=== PATIENT | male | born 1985 | race Caucasian/White ===

== ENCOUNTER 2020-08-11 14:50 | Inpatient (IN) ==
[2020-08-11] MEDS ORDERED: IOPAMIDOL 100 ML BOTTLE IV ONE (14:51)
[2020-08-11] MEDS ORDERED: ONDANSETRON 4 MG/2 ML VIAL IV ONE ×2 (15:03→15:15)
[2020-08-11] MEDS ORDERED: 0.9 % SODIUM CHLORIDE 1,000 ML IV ONE (15:03)
[2020-08-11] MEDS ORDERED: INSULIN REGULAR, HUMAN 1 UNIT/0.01 ML UNIT IV ONE (15:23)
[2020-08-11 15:35] LABS: POC Blood Urea Nitrogen 54 mg/dL (6-20); POC CO2 24 mmol/L (22-30); POC Calcium, Ionized 1.04 mmEq/L (1.16-1.32); POC Chloride 95 mEq/L (96-108); POC Creatinine 1.7 mg/dL (0.6-1.2); POC Hematocrit 47 % (41-55); POC Potassium 3.9 mEql/L (3.3-5.1); POC Sodium 132 mEq/L (133-145)
[2020-08-11 15:36] LABS: POC Glucose, Random 520 mg/dL (70-105)
--- NOTE | 2020-08-11 15:37 | Emergency Department Note ---
Nausea/Vomiting/Diarrhea HPI <Kendra Adams, STUDENT - Last Filed: 08/11/20 20:39> General Chief complaint: Nausea/Vomiting/Diarrhea Stated complaint: nausea, vomiting Time Seen by Provider: 08/11/20 15:03 Source: patient Mode of arrival: ambulatory Limitations: no limitations History of Present Illness HPI Narrative: Narrative: [id number]-male presents with nausea/vomiting & diarrhea since Tuesday. He is actively vomiting green bile and states he has not voided since yesterday. He has not been able to keep food or fluids down since Tuesday. Patient does use marijuana to treat his gastroparesis. He reports bright red blood in his vomit at times. He is a type 1 diabetic and has been hospitalized with DKA twice most recently 2 weeks ago. He uses an insulin pump normally. He lost the PDM two days ago to control his Omni pod and has not been able to use his pump. He has been checking his blood sugars every two hours and covering himself with Humalog insulin. BG currently is 471. He just moved here from [place] to be closer to family. He reports chilling but no fever, cough, shortness of breath or recent exposure to COVID-19. Related Data Allergies Allergy/AdvReac Type Severity Reaction Status Date / Time No Known Drug Allergies Allergy Verified 08/11/20 14:54 Review of Systems <Kendra Adams, STUDENT - Last Filed: 08/11/20 20:39> ROS ROS Narrative: Narrative:Endorces history of GERD, gastroparesis, DMT1 and DKA PFSH <Kendra Adams, STUDENT - Last Filed: 08/11/20 20:39> Narrative Patient History Narrative: Narrative: Medical/Surgical/Family History All Active Problems (Updated 08/11/20 @ 17:50 by SUZANNE Sanders) Diabetic gastroparesis (Acute) DKA (diabetic ketoacidoses) (Acute) Elevated serum creatinine (Acute) Acute dehydration (Acute) Abdominal pain (Acute) Non-compliance (Acute) Diabetes (Acute) Medical History (Updated 08/11/20 @ 17:50 by SUZANNE Sanders) DKA (diabetic ketoacidoses) (Acute) Gastroparesis (Acute) Non-compliance (Acute) Social History Smoking Status: Never smoker Alcohol Intake Frequency: does not drink Substance Use: marijuana (CBD and THC pills to treat gastroperisis ) Exam <Kendra Adams, STUDENT - Last Filed: 08/11/20 20:39> Narrative Narrative: Narrative: General Limitations: no limitations General appearance: Present alert, in distress and malaise Head Head: Present atraumatic and normocephalic Eye Eye: Present normal appearance and PERRL ENT ENT: Present mucous membranes moist and other (lower lip raw and red, + pharyngitis ); Absent normal oropharynx Neck Neck: Present normal inspection Chest Chest: Present symmetric chest wall rise Respiratory Respiratory: Present normal lung sounds bilaterally; Absent respiratory distress and wheezes Cardiovascular Cardiovascular: Present regular rate and tachycardia Adbominal Abdominal: Present soft, tenderness (generalized ) and normal bowel sounds; A bsent distention and guarding Extremities Extremities: Present normal inspection Psychiatric Psychiatric: Present flat affect and poor eye contact Skin Skin: Present warm (WNL) Course <Kendra Adams, STUDENT - Last Filed: 08/11/20 20:39> Course Course Narrative: Patient continued to have vomiting with Zofran every 15-30 minutes. Phenergan 12.5 mg IV was effective for managing nausea. His vomiting is worse when he moves. No blood noted in emesis. The patient has received 1L 0.9 NS IV bolus followed by 0.9 NS at 500 ml/hr. An insulin drip was started at 6.5 u/hr for blood glucose of 520 mg/dl. His K+ was 3.9, 40 mEq [address] IV [address]. [address] of abdomen and CXR negative. WBC 23. 3 with no clear source of infection. Rapid COVID negitive. Insulin drip decreased due to blood glucose drop to 322, insulin drip decreased to 3.25 u/hr with re-check in 30 minutes[address] Report given to Dr. Peterson, he has accepted the patient at [id number] for admission to the ICU for treatment of his DKA. Vital Signs Vital signs: Vital Signs Temperature 97.8 F 08/11/20 14:51 Pulse Rate 128 H 08/11/20 14:51 Respiratory Rate 20 08/11/20 14:51 Blood Pressure 158/95 08/11/20 14:51 Pulse Oximetry (%) 98 08/11/20 14:51 Temperature 97.8 F 08/11/20 14:51 Pulse Rate 122 H 08/11/20 22:16 Respiratory Rate 28 H 08/11/20 22:16 Blood Pressure 141/97 08/11/20 22:16 Pulse Oximetry (%) 97 08/11/20 22:16 <SUZANNE Sanders - Last Filed: 08/11/20 23:06> Vital Signs Vital signs: Vital Signs Temperature 97.8 F 08/11/20 14:51 Pulse Rate 128 H 08/11/20 14:51 Respiratory Rate 20 08/11/20 14:51 Blood Pressure 158/95 08/11/20 14:51 Pulse Oximetry (%) 98 08/11/20 14:51 Temperature 97.8 F 08/11/20 14:51 Pulse Rate 122 H 08/11/20 22:16 Respiratory Rate 28 H 08/11/20 22:16 Blood Pressure 141/97 08/11/20 22:16 Pulse Oximetry (%) 97 08/11/20 22:16 MDM <Kendra Adams, STUDENT - Last Filed: 08/11/20 20:39> MDM Narrative Medical decision making narrative: Narrative: Report given to Dr. Peterson at 174, he agrees to accept this patient for care in the ICU for DKA. Lab Data Result diagrams: 08/11/20 15:26 08/11/20 15:26 Labs: Lab Results 08/11/20 08/11/20 08/11/20 Range/Units 15:03 15:26 15:26 WBC 23.3 H (4.5-11.0) K/mcL RBC 5.32 (4.50-5.90) M/mcL Hgb 15.7 (13.5-16.5) g/dL Hct 45.5 (41.0-55.0) % POC Hct 47 (41-55) % MCV 85.5 (80.0-100.0) fL MCH 29.5 (26.0-34.0) pg MCHC 34.5 (31.0-36.0) g/dL RDW 12.4 (11.5-14.5) % Plt Count 296 (140-440) K/mcL MPV 10.1 (7.4-10.4) fL Neut % (Auto) 91.2 H (38.0-78.0) % Lymph % (Auto) 3.8 L (15.0-49.0) % Emanuel % (Auto) 4.9 (1.0-12.0) % Eos % (Auto) 0 (0.0-7.0) % Baso % (Auto) 0.1 (0.0-2.0) % Lymph # (Auto) 0.89 L (1.50-4.80) K/mcL Emanuel # (Auto) 1.15 H (0.10-0.90) K/mcL Eos # (Auto) 0 (0.00-0.70) K/mcL Baso # (Auto) 0.03 (0.00-0.20) K/mcL Absolute Neutrophils 21.27 H (1.80-8.00) K/mcL ABG Methemoglobin (0.4-1.5) % VBG pH (7.32-7.42) U VBG pCO2 (41.0-51.0) mmHg VBG pO2 (25.0-40.0) mmHg VBG HCO3 (24.0-28.0) mmol/L VBG Total CO2 (25.0-29.0) mmol/L VBG O2 Saturation (40.0-70.0) % VBG Base Excess (-2-3) VBG Lactic Acid 2.5 H (0.5-2.0) mmol/L Carboxyhemoglobin (0.0-1.5) % THgb Total Hemoglobin (13.5-16.5) gm/Dl POC Sodium 132 L (133-145) mEq/L Sodium 133 (133-145) mmol/L POC Potassium 3.9 (3.3-5.1) mEql/L Potassium 4.0 (3.3-5.1) mmol/L POC Chloride 95 L (96-108) mEq/L Chloride 89 L (96-108) mmol/L Carbon Dioxide 18 L (22-30) mmol/L POC Total CO2 24 (22-30) mmol/L Anion Gap 26.0 H (8.0-16.0) POC BUN 54 H (6-20) mg/dL BUN 54 H (6-20) mg/dL Creatinine 1.7 H (0.7-1.2) mg/dL POC Creatinine 1.7 H (0.6-1.2) mg/dL GFR Calculation 51 Glucose 516 H* (70-105) mg/dL POC Glucose 520 H (70-105) mg/dL Calcium 9.3 (8.6-10.4) mg/dL POC WB Ioniz Calcium 1.04 L (1.16-1.32) mmEq/L Total Bilirubin 1.3 H (0.1-1.0) mg/dL AST 28 (<40) U/L ALT 29 (<40) U/L Alkaline Phosphatase 98 (39-117) U/L Total Protein 7.5 (5.9-8.4) gm/dL Albumin 4.5 (3.2-5.2) gm/dL Globulin 3.0 (2.2-3.7) gm/dL Albumin/Globulin Ratio 1.5 (1.0-2.3) Lipase 8 (7-60) U/L Beta-Hydroxybutyrate (<0.27) mmol/L Urine Color Urine Appearance (Clear) Urine pH (5.0-9.0) Ur Specific [place] (1.000-1.035) Urine Protein (Negative) mg/dL Urine Glucose (UA) (Negative) mg/dL Urine Ketones (Negative) mg/dL Urine Occult Blood (Negative) mg/dL Urine Nitrate (Negative) Urine Bilirubin (Negative) mg/dL Urine Urobilinogen mg/dL Ur Leukocyte Esterase (Negative) /ug Urine RBC (0-1) /hpf Urine WBC (0-4) /hpf Ur Squamous Epith Cells (0-4) /hpf Urine Bacteria (0) /hpf Hyaline Casts (0-2) /lph Urine Mucus (None) /hpf Urine Sperm (Absent) /hpf Ur Culture Indicated? SARS-CoV-2 (PCR) (Negative) 08/11/20 08/11/20 08/11/20 Range/Units 15:26 15:27 15:45 WBC (4.5-11.0) K/mcL RBC (4.50-5.90) M/mcL Hgb (13.5-16.5) g/dL Hct (41.0-55.0) % POC Hct (41-55) % MCV (80.0-100.0) fL MCH (26.0-34.0) pg MCHC (31.0-36.0) g/dL RDW (11.5-14.5) % Plt Count (140-440) K/mcL MPV (7.4-10.4) fL Neut % (Auto) (38.0-78.0) % Lymph % (Auto) (15.0-49.0) % Emanuel % (Auto) (1.0-12.0) % Eos % (Auto) (0.0-7.0) % Baso % (Auto) (0.0-2.0) % Lymph # (Auto) (1.50-4.80) K/mcL Emanuel # (Auto) (0.10-0.90) K/mcL Eos # (Auto) (0.00-0.70) K/mcL Baso # (Auto) (0.00-0.20) K/mcL Absolute Neutrophils (1.80-8.00) K/mcL ABG Methemoglobin 0.2 L (0.4-1.5) % VBG pH 7.52 H (7.32-7.42) U VBG pCO2 20.6 L (41.0-51.0) mmHg VBG pO2 187.0 H (25.0-40.0) mmHg VBG HCO3 17.8 L (24.0-28.0) mmol/L VBG Total CO2 18.4 L (25.0-29.0) mmol/L VBG O2 Saturation 96.6 H (40.0-70.0) % VBG Base Excess -2 (-2-3) VBG Lactic Acid (0.5-2.0) mmol/L Carboxyhemoglobin 2.8 H (0.0-1.5) % THgb Total Hemoglobin 15.5 (13.5-16.5) gm/Dl POC Sodium (133-145) mEq/L Sodium (133-145) mmol/L POC Potassium (3.3-5.1) mEql/L Potassium (3.3-5.1) mmol/L POC Chloride (96-108) mEq/L Chloride (96-108) mmol/L Carbon Dioxide (22-30) mmol/L POC Total CO2 (22-30) mmol/L Anion Gap (8.0-16.0) POC BUN (6-20) mg/dL BUN (6-20) mg/dL Creatinine (0.7-1.2) mg/dL POC Creatinine (0.6-1.2) mg/dL GFR Calculation Glucose (70-105) mg/dL POC Glucose (70-105) mg/dL Calcium (8.6-10.4) mg/dL POC WB Ioniz Calcium (1.16-1.32) mmEq/L Total Bilirubin (0.1-1.0) mg/dL AST (<40) U/L ALT (<40) U/L Alkaline Phosphatase (39-117) U/L Total Protein (5.9-8.4) gm/dL Albumin (3.2-5.2) gm/dL Globulin (2.2-3.7) gm/dL Albumin/Globulin Ratio (1.0-2.3) Lipase (7-60) U/L Beta-Hydroxybutyrate 3.50 H (<0.27) mmol/L Urine Color Yellow Urine Appearance Clear (Clear) Urine pH 5.0 (5.0-9.0) Ur Specific [place] 1.026 (1.000-1.035) Urine Protein Negative (Negative) mg/dL Urine Glucose (UA) >=500 A (Negative) mg/dL Urine Ketones 20 A (Negative) mg/dL Urine Occult Blood Negative (Negative) mg/dL Urine Nitrate Negative (Negative) Urine Bilirubin Negative (Negative) mg/dL Urine Urobilinogen Negative mg/dL Ur Leukocyte Esterase Negative (Negative) /ug Urine RBC < 1 (0-1) /hpf Urine WBC 1 (0-4) /hpf Ur Squamous Epith Cells < 1 (0-4) /hpf Urine Bacteria None (0) /hpf Hyaline Casts 101 H (0-2) /lph Urine Mucus Mod A (None) /hpf Urine Sperm Present A (Absent) /hpf Ur Culture Indicated? No SARS-CoV-2 (PCR) (Negative) 08/11/20 Range/Units 16:00 WBC (4.5-11.0) K/mcL RBC (4.50-5.90) M/mcL Hgb (13.5-16.5) g/dL Hct (41.0-55.0) % POC Hct (41-55) % MCV (80.0-100.0) fL MCH (26.0-34.0) pg MCHC (31.0-36.0) g/dL RDW (11.5-14.5) % Plt Count (140-440) K/mcL MPV (7.4-10.4) fL Neut % (Auto) (38.0-78.0) % Lymph % (Auto) (15.0-49.0) % Emanuel % (Auto) (1.0-12.0) % Eos % (Auto) (0.0-7.0) % Baso % (Auto) (0.0-2.0) % Lymph # (Auto) (1.50-4.80) K/mcL Emanuel # (Auto) (0.10-0.90) K/mcL Eos # (Auto) (0.00-0.70) K/mcL Baso # (Auto) (0.00-0.20) K/mcL Absolute Neutrophils (1.80-8.00) K/mcL ABG Methemoglobin (0.4-1.5) % VBG pH (7.32-7.42) U VBG pCO2 (41.0-51.0) mmHg VBG pO2 (25.0-40.0) mmHg VBG HCO3 (24.0-28.0) mmol/L VBG Total CO2 (25.0-29.0) mmol/L VBG O2 Saturation (40.0-70.0) % VBG Base Excess (-2-3) VBG Lactic Acid (0.5-2.0) mmol/L Carboxyhemoglobin (0.0-1.5) % THgb Total Hemoglobin (13.5-16.5) gm/Dl POC Sodium (133-145) mEq/L Sodium (133-145) mmol/L POC Potassium (3.3-5.1) mEql/L Potassium (3.3-5.1) mmol/L POC Chloride (96-108) mEq/L Chloride (96-108) mmol/L Carbon Dioxide (22-30) mmol/L POC Total CO2 (22-30) mmol/L Anion Gap (8.0-16.0) POC BUN (6-20) mg/dL BUN (6-20) mg/dL Creatinine (0.7-1.2) mg/dL POC Creatinine (0.6-1.2) mg/dL GFR Calculation Glucose (70-105) mg/dL POC Glucose (70-105) mg/dL Calcium (8.6-10.4) mg/dL POC WB Ioniz Calcium (1.16-1.32) mmEq/L Total Bilirubin (0.1-1.0) mg/dL AST (<40) U/L ALT (<40) U/L Alkaline Phosphatase (39-117) U/L Total Protein (5.9-8.4) gm/dL Albumin (3.2-5.2) gm/dL Globulin (2.2-3.7) gm/dL Albumin/Globulin Ratio (1.0-2.3) Lipase (7-60) U/L Beta-Hydroxybutyrate (<0.27) mmol/L Urine Color Urine Appearance (Clear) Urine pH (5.0-9.0) Ur Specific [place] (1.000-1.035) Urine Protein (Negative) mg/dL Urine Glucose (UA) (Negative) mg/dL Urine Ketones (Negative) mg/dL Urine Occult Blood (Negative) mg/dL Urine Nitrate (Negative) Urine Bilirubin (Negative) mg/dL Urine Urobilinogen mg/dL Ur Leukocyte Esterase (Negative) /ug Urine RBC (0-1) /hpf Urine WBC (0-4) /hpf Ur Squamous Epith Cells (0-4) /hpf Urine Bacteria (0) /hpf Hyaline Casts (0-2) /lph Urine Mucus (None) /hpf Urine Sperm (Absent) /hpf Ur Culture Indicated? SARS-CoV-2 (PCR) Negative (Negative) <SUZANNE Sanders - Last Filed: 08/11/20 23:06> Lab Data Labs: Lab Results 08/11/20 08/11/20 08/11/20 Range/Units 15:03 15:26 15:26 WBC 23.3 H (4.5-11.0) K/mcL RBC 5.32 (4.50-5.90) M/mcL Hgb 15.7 (13.5-16.5) g/dL Hct 45.5 (41.0-55.0) % POC Hct 47 (41-55) % MCV 85.5 (80.0-100.0) fL MCH 29.5 (26.0-34.0) pg MCHC 34.5 (31.0-36.0) g/dL RDW 12.4 (11.5-14.5) % Plt Count 296 (140-440) K/mcL MPV 10.1 (7.4-10.4) fL Neut % (Auto) 91.2 H (38.0-78.0) % Lymph % (Auto) 3.8 L (15.0-49.0) % Emanuel % (Auto) 4.9 (1.0-12.0) % Eos % (Auto) 0 (0.0-7.0) % Baso % (Auto) 0.1 (0.0-2.0) % Lymph # (Auto) 0.89 L (1.50-4.80) K/mcL Emanuel # (Auto) 1.15 H (0.10-0.90) K/mcL Eos # (Auto) 0 (0.00-0.70) K/mcL Baso # (Auto) 0.03 (0.00-0.20) K/mcL Absolute Neutrophils 21.27 H (1.80-8.00) K/mcL ABG Methemoglobin (0.4-1.5) % VBG pH (7.32-7.42) U VBG pCO2 (41.0-51.0) mmHg VBG pO2 (25.0-40.0) mmHg VBG HCO3 (24.0-28.0) mmol/L VBG Total CO2 (25.0-29.0) mmol/L VBG O2 Saturation (40.0-70.0) % VBG Base Excess (-2-3) VBG Lactic Acid 2.5 H (0.5-2.0) mmol/L Carboxyhemoglobin (0.0-1.5) % THgb Total Hemoglobin (13.5-16.5) gm/Dl POC Sodium 132 L (133-145) mEq/L Sodium 133 (133-145) mmol/L POC Potassium 3.9 (3.3-5.1) mEql/L Potassium 4.0 (3.3-5.1) mmol/L POC Chloride 95 L (96-108) mEq/L Chloride 89 L (96-108) mmol/L Carbon Dioxide 18 L (22-30) mmol/L POC Total CO2 24 (22-30) mmol/L Anion Gap 26.0 H (8.0-16.0) POC BUN 54 H (6-20) mg/dL BUN 54 H (6-20) mg/dL Creatinine 1.7 H (0.7-1.2) mg/dL POC Creatinine 1.7 H (0.6-1.2) mg/dL GFR Calculation 51 Glucose 516 H* (70-105) mg/dL POC Glucose 520 H (70-105) mg/dL Calcium 9.3 (8.6-10.4) mg/dL POC WB Ioniz Calcium 1.04 L (1.16-1.32) mmEq/L Total Bilirubin 1.3 H (0.1-1.0) mg/dL AST 28 (<40) U/L ALT 29 (<40) U/L Alkaline Phosphatase 98 (39-117) U/L Total Protein 7.5 (5.9-8.4) gm/dL Albumin 4.5 (3.2-5.2) gm/dL Globulin 3.0 (2.2-3.7) gm/dL Albumin/Globulin Ratio 1.5 (1.0-2.3) Lipase 8 (7-60) U/L Beta-Hydroxybutyrate (<0.27) mmol/L Urine Color Urine Appearance (Clear) Urine pH (5.0-9.0) Ur Specific [place] (1.000-1.035) Urine Protein (Negative) mg/dL Urine Glucose (UA) (Negative) mg/dL Urine Ketones (Negative) mg/dL Urine Occult Blood (Negative) mg/dL Urine Nitrate (Negative) Urine Bilirubin (Negative) mg/dL Urine Urobilinogen mg/dL Ur Leukocyte Esterase (Negative) /ug Urine RBC (0-1) /hpf Urine WBC (0-4) /hpf Ur Squamous Epith Cells (0-4) /hpf Urine Bacteria (0) /hpf Hyaline Casts (0-2) /lph Urine Mucus (None) /hpf Urine Sperm (Absent) /hpf Ur Culture Indicated? SARS-CoV-2 (PCR) (Negative) 08/11/20 08/11/20 08/11/20 Range/Units 15:26 15:27 15:45 WBC (4.5-11.0) K/mcL RBC (4.50-5.90) M/mcL Hgb (13.5-16.5) g/dL Hct (41.0-55.0) % POC Hct (41-55) % MCV (80.0-100.0) fL MCH (26.0-34.0) pg MCHC (31.0-36.0) g/dL RDW (11.5-14.5) % Plt Count (140-440) K/mcL MPV (7.4-10.4) fL Neut % (Auto) (38.0-78.0) % Lymph % (Auto) (15.0-49.0) % Emanuel % (Auto) (1.0-12.0) % Eos % (Auto) (0.0-7.0) % Baso % (Auto) (0.0-2.0) % Lymph # (Auto) (1.50-4.80) K/mcL Emanuel # (Auto) (0.10-0.90) K/mcL Eos # (Auto) (0.00-0.70) K/mcL Baso # (Auto) (0.00-0.20) K/mcL Absolute Neutrophils (1.80-8.00) K/mcL ABG Methemoglobin 0.2 L (0.4-1.5) % VBG pH 7.52 H (7.32-7.42) U VBG pCO2 20.6 L (41.0-51.0) mmHg VBG pO2 187.0 H (25.0-40.0) mmHg VBG HCO3 17.8 L (24.0-28.0) mmol/L VBG Total CO2 18.4 L (25.0-29.0) mmol/L VBG O2 Saturation 96.6 H (40.0-70.0) % VBG Base Excess -2 (-2-3) VBG Lactic Acid (0.5-2.0) mmol/L Carboxyhemoglobin 2.8 H (0.0-1.5) % THgb Total Hemoglobin 15.5 (13.5-16.5) gm/Dl POC Sodium (133-145) mEq/L Sodium (133-145) mmol/L POC Potassium (3.3-5.1) mEql/L Potassium (3.3-5.1) mmol/L POC Chloride (96-108) mEq/L Chloride (96-108) mmol/L Carbon Dioxide (22-30) mmol/L POC Total CO2 (22-30) mmol/L Anion Gap (8.0-16.0) POC BUN (6-20) mg/dL BUN (6-20) mg/dL Creatinine (0.7-1.2) mg/dL POC Creatinine (0.6-1.2) mg/dL GFR Calculation Glucose (70-105) mg/dL POC Glucose (70-105) mg/dL Calcium (8.6-10.4) mg/dL POC WB Ioniz Calcium (1.16-1.32) mmEq/L Total Bilirubin (0.1-1.0) mg/dL AST (<40) U/L ALT (<40) U/L Alkaline Phosphatase (39-117) U/L Total Protein (5.9-8.4) gm/dL Albumin (3.2-5.2) gm/dL Globulin (2.2-3.7) gm/dL Albumin/Globulin Ratio (1.0-2.3) Lipase (7-60) U/L Beta-Hydroxybutyrate 3.50 H (<0.27) mmol/L Urine Color Yellow Urine Appearance Clear (Clear) Urine pH 5.0 (5.0-9.0) Ur Specific [place] 1.026 (1.000-1.035) Urine Protein Negative (Negative) mg/dL Urine Glucose (UA) >=500 A (Negative) mg/dL Urine Ketones 20 A (Negative) mg/dL Urine Occult Blood Negative (Negative) mg/dL Urine Nitrate Negative (Negative) Urine Bilirubin Negative (Negative) mg/dL Urine Urobilinogen Negative mg/dL Ur Leukocyte Esterase Negative (Negative) /ug Urine RBC < 1 (0-1) /hpf Urine WBC 1 (0-4) /hpf Ur Squamous Epith Cells < 1 (0-4) /hpf Urine Bacteria None (0) /hpf Hyaline Casts 101 H (0-2) /lph Urine Mucus Mod A (None) /hpf Urine Sperm Present A (Absent) /hpf Ur Culture Indicated? No SARS-CoV-2 (PCR) (Negative) 08/11/20 Range/Units 16:00 WBC (4.5-11.0) K/mcL RBC (4.50-5.90) M/mcL Hgb (13.5-16.5) g/dL Hct (41.0-55.0) % POC Hct (41-55) % MCV (80.0-100.0) fL MCH (26.0-34.0) pg MCHC (31.0-36.0) g/dL RDW (11.5-14.5) % Plt Count (140-440) K/mcL MPV (7.4-10.4) fL Neut % (Auto) (38.0-78.0) % Lymph % (Auto) (15.0-49.0) % Emanuel % (Auto) (1.0-12.0) % Eos % (Auto) (0.0-7.0) % Baso % (Auto) (0.0-2.0) % Lymph # (Auto) (1.50-4.80) K/mcL Emanuel # (Auto) (0.10-0.90) K/mcL Eos # (Auto) (0.00-0.70) K/mcL Baso # (Auto) (0.00-0.20) K/mcL Absolute Neutrophils (1.80-8.00) K/mcL ABG Methemoglobin (0.4-1.5) % VBG pH (7.32-7.42) U VBG pCO2 (41.0-51.0) mmHg VBG pO2 (25.0-40.0) mmHg VBG HCO3 (24.0-28.0) mmol/L VBG Total CO2 (25.0-29.0) mmol/L VBG O2 Saturation (40.0-70.0) % VBG Base Excess (-2-3) VBG Lactic Acid (0.5-2.0) mmol/L Carboxyhemoglobin (0.0-1.5) % THgb Total Hemoglobin (13.5-16.5) gm/Dl POC Sodium (133-145) mEq/L Sodium (133-145) mmol/L POC Potassium (3.3-5.1) mEql/L Potassium (3.3-5.1) mmol/L POC Chloride (96-108) mEq/L Chloride (96-108) mmol/L Carbon Dioxide (22-30) mmol/L POC Total CO2 (22-30) mmol/L Anion Gap (8.0-16.0) POC BUN (6-20) mg/dL BUN (6-20) mg/dL Creatinine (0.7-1.2) mg/dL POC Creatinine (0.6-1.2) mg/dL GFR Calculation Glucose (70-105) mg/dL POC Glucose (70-105) mg/dL Calcium (8.6-10.4) mg/dL POC WB Ioniz Calcium (1.16-1.32) mmEq/L Total Bilirubin (0.1-1.0) mg/dL AST (<40) U/L ALT (<40) U/L Alkaline Phosphatase (39-117) U/L Total Protein (5.9-8.4) gm/dL Albumin (3.2-5.2) gm/dL Globulin (2.2-3.7) gm/dL Albumin/Globulin Ratio (1.0-2.3) Lipase (7-60) U/L Beta-Hydroxybutyrate (<0.27) mmol/L Urine Color Urine Appearance (Clear) Urine pH (5.0-9.0) Ur Specific [place] (1.000-1.035) Urine Protein (Negative) mg/dL Urine Glucose (UA) (Negative) mg/dL Urine Ketones (Negative) mg/dL Urine Occult Blood (Negative) mg/dL Urine Nitrate (Negative) Urine Bilirubin (Negative) mg/dL Urine Urobilinogen mg/dL Ur Leukocyte Esterase (Negative) /ug Urine RBC (0-1) /hpf Urine WBC (0-4) /hpf Ur Squamous Epith Cells (0-4) /hpf Urine Bacteria (0) /hpf Hyaline Casts (0-2) /lph Urine Mucus (None) /hpf Urine Sperm (Absent) /hpf Ur Culture Indicated? SARS-CoV-2 (PCR) Negative (Negative) Discharge Plan Patient/Caregiver Discharge Instructions Pt seen by [facility]/PA only: Yes Clinical Impression: Non-compliance, Diabetic gastroparesis, Elevated serum creatinine, Acute dehydration, Abdominal pain Diabetes Qualifiers: Diabetes mellitus type: type 1 DKA (diabetic ketoacidoses) Qualifiers: Diabetes mellitus type: type 1 Diabetes mellitus complication detail: without coma Qualified Code(s): E10.10 - Type 1 diabetes mellitus with ketoacidosis without coma Patient Disposition: Xfer As Inpt ([facility]) Condition: Fair Discharge Date/Time: 08/11/20 22:28
[2020-08-11 15:55] LABS: ABG Methemoglobin 0.2 % (0.4-1.5); Basophils # (Auto) 0.03 K/mcL (0.00-0.20); Basophils % (Auto) 0.1 % (0.0-2.0); Eosinophils # (Auto) 0 K/mcL (0.00-0.70); Eosinophils % (Auto) 0 % (0.0-7.0); Hematocrit 45.5 % (41.0-55.0); Hemoglobin 15.7 g/dL (13.5-16.5); Lymphocytes # (Auto) 0.89 K/mcL (1.50-4.80); Lymphocytes % (Auto) 3.8 % (15.0-49.0); Mean Cell Volume 85.5 fL (80.0-100.0); Mean Corpuscular HGB Conc 34.5 g/dL (31.0-36.0); Mean Platelet Volume 10.1 fL (7.4-10.4); Monocytes # (Auto) 1.15 K/mcL (0.10-0.90); Monocytes % (Auto) 4.9 % (1.0-12.0); Neutrophils % (Auto) 91.2 % (38.0-78.0); Platelet Count 296 K/mcL (140-440); RBC 5.32 M/mcL (4.50-5.90); Red Cell Distribution Width 12.4 % (11.5-14.5); Total Hemoglobin 15.5 gm/Dl (13.5-16.5); VBG Base Excess -2 (-2-3); VBG HCO3 17.8 mmol/L (24.0-28.0); VBG Oxygen Saturation 96.6 % (40.0-70.0); VBG PCO2 20.6 mmHg (41.0-51.0); VBG PH 7.52 U (7.32-7.42); VBG Total CO2 18.4 mmol/L (25.0-29.0); WBC 23.3 K/mcL (4.5-11.0)
[2020-08-11] MEDS ORDERED: POTASSIUM CHLORIDE 40 MEQ in DEXTROSE 5% IN WATER 500 ML IV ONE (16:21)
[2020-08-11] MEDS ORDERED: INSULIN REGULAR, HUMAN 50 UNIT in 0.9 % SODIUM CHLORIDE 99.5 ML IV SCH (16:30)
[2020-08-11] MEDS ORDERED: 0.9 % SODIUM CHLORIDE 1,000 ML IV SCH (16:30)
[2020-08-11] MEDS ORDERED: PROMETHAZINE 25 MG/ML VIAL IV ONE (16:34)
[2020-08-11 16:39] LABS: ALT/SGPT 29 U/L (<40); AST/SGOT 28 U/L (<40); Albumin 4.5 gm/dL (3.2-5.2); Albumin/Globulin Ratio 1.5 (1.0-2.3); Alkaline Phosphatase 98 U/L (39-117); Bilirubin,Total 1.3 mg/dL (0.1-1.0); Blood Urea Nitrogen 54 mg/dL (6-20); Calcium 9.3 mg/dL (8.6-10.4); Carbon Dioxide 18 mmol/L (22-30); Chloride 89 mmol/L (96-108); Glomerular Filtration Rate 51; Glucose 516 mg/dL (70-105)
[2020-08-11 16:58] LABS: Appearance,Urine CLEAR (Clear); Bilirubin,Urine Negative (Negative); Color,Urine YELLOW; Culture Indicated,Urine No; Glucose,Urine (UA) >=500 mg/dL (Negative); Ketones,Urine 20 mg/dL (Negative); Leukocyte Esterase,Urine Negative /ug (Negative); Mucus,Urine MOD /hpf; Nitrate,Urine Negative (Negative); Protein,Urine Negative (Negative); Specific Gravity,Urine 1.026 (1.000-1.035); Sperm,Urine PRESENT /hpf (Absent); Urine Blood Negative (Negative); Urine Hyaline Cast 101 /lph (0-2); Urine RBC < 1 /hpf (0-1); Urine Squamous Epithelial Cell < 1 /hpf (0-4); Urine WBC 1 /hpf (0-4); Urobilinogen,Urine Negative
--- NOTE | 2020-08-11 17:04 | XRay Report ---
INDICATION: weakness, elevated wbc TECHNIQUE: AP portable semiupright chest x-ray COMPARISON: None FINDINGS: Lungs:Lungs are negative. No focal pulmonary parenchymal infiltrate or mass Heart, vascular:No significant cardiomegaly. Pulmonary vascularity is normal. No pulmonary edema or pulmonary congestion Mediastinum, sussy:No mediastinal widening. No hilar mass Pleura:No pleural fluid. No pleural-based mass or calcification Skeletal:Negative. IMPRESSION: Negative AP chest x-ray Interpreted and Authenticated by: Terrell Thomas 08/11/20
--- NOTE | 2020-08-11 17:12 | Cat Scan Report ---
INDICATION: difuse abd pain, wbc 23K COMPARISON: None. TECHNIQUE: Axial images were obtained through the abdomen and pelvis. Sagittally and coronally reformatted images. 60 mL Isovue 370 injected intravenously. FINDINGS: Lung bases:Negative. No pulmonary parenchymal nodule. No pleural fluid or pericardial fluid Liver:Negative. No focal intrahepatic mass. No focal abnormality. Liver contour is smooth. No evidence for cirrhosis Gallbladder, bilary:No calcified gallstones. No gallbladder wall thickening. No dilated intra or extrahepatic bile ducts. Spleen:No splenomegaly. Normal enhancement of splenic and portal veins. Pancreas:No pancreatic mass. No peripancreatic abnormality Adrenal glands:Negative Kidneys, ureters, bladder:No solid or cystic renal mass. No hydronephrosis. No obstructing calculi. There is no hydroureter. No ureteral stone Bladder is moderately distended. No bladder calculi are detectable mass Gastrointestinal:No detectable colonic mass. There is no diverticulitis. Small bowel is negative. No mechanical small bowel obstruction. Stomach and duodenum are unremarkable. There is a small hiatal hernia Appendix: The appendix is negative Vascular:Negative abdominal aorta. Superior mesenteric artery and celiac trunk are normal. Normal opacification of the inferior mesenteric artery Lymphatic:No retroperitoneal or mesenteric adenopathy Mesentery, peritoneum: No free intraperitoneal fluid. No mesenteric or retroperitoneal mass. Reproductive:Prostate is not significantly enlarged Musculoskeletal:No lumbar compression fractures. Sacrum and pelvis are negative. No hip fracture.No abdominal wall or inguinal hernia IMPRESSION: 1. Small hiatal hernia 2. Moderate bladder distention 3. Negative appendix The exam was performed using radiation dose optimization techniques including, but not limited to, automated exposure control, adjustment of the mA and/or kV according to patient size and use of iterative reconstruction technique. Interpreted and Authenticated by: Terrell Thomas 08/11/20
--- NOTE | 2020-08-11 17:20 | Emergency Department Note ---
HPI General Chief complaint: Nausea/Vomiting/Diarrhea Stated complaint: nausea, vomiting Time Seen by Provider: 08/11/20 15:03 Source: patient Mode of arrival: ambulatory Limitations: no limitations History of Present Illness HPI Narrative: Narrative:Narrative: [id number] presents with nausea/vomiting & diarrhea since Tuesday. He is actively vomiting green bile and states he has not voided since yesterday. He has not been able to keep food or fluids down since Tuesday. Patient does use marijuana to treat his gastroparesis. He reports bright red blood in his vomit at times. He is a type 1 diabetic and has been hospitalized with DKA twice most recently 2 weeks ago. He uses an insulin pump normally. He lost the PDM two days ago to control his Omni pod and has not been able to use his pump. He has been checking his blood sugars every two hours and covering himself with Humalog insulin. BG currently is 471. He just moved here from [place] to be closer to family. He reports chilling but no fever, cough, shortness of breath or recent exposure to COVID-19. Agree with this HPI done by student DAIRY QUALITY ASSURANCE OFFICER Kendra Adams Related Data Allergies Allergy/AdvReac Type Severity Reaction Status Date / Time No Known Drug Allergies Allergy Verified 08/11/20 14:54 Review of Systems ROS ROS Narrative: Narrative: All systems ED: reviewed and negative except as stated. [facility] Narrative Patient History Narrative: Narrative: Medical/Surgical/Family History All Active Problems (Updated 08/11/20 @ 17:50 by SUZANNE Sanders) Diabetic gastroparesis (Acute) DKA (diabetic ketoacidoses) (Acute) Elevated serum creatinine (Acute) Acute dehydration (Acute) Abdominal pain (Acute) Non-compliance (Acute) Diabetes (Acute) Medical History (Updated 08/11/20 @ 17:50 by SUZANNE Sanders) DKA (diabetic ketoacidoses) (Acute) Gastroparesis (Acute) Non-compliance (Acute) Social History Smoking Status: Never smoker Alcohol Intake Frequency: does not drink Substance Use: marijuana Exam Narrative Narrative: Narrative: General Limitations: no limitations General appearance: Present alert and other (flushed) Head Head: Present atraumatic and normocephalic Eye Eye: Present normal appearance; Absent conjunctival injection ENT ENT: Present mucous membranes moist, TM's normal bilaterally and normal external ear exam; Absent normal oropharynx (Posterior pharynx with moderate erythema.), nasal congestion and nasal tones Neck Neck: Present normal inspection and trachea midline; Absent lymphadenopathy Chest Chest: Present symmetric chest wall rise Respiratory Respiratory: Present normal lung sounds bilaterally; Absent respiratory distress, rales/crackles, wheezes, stridor and accessory muscle use Cardiovascular Cardiovascular: Present tachycardia and normal heart sounds Adbominal Abdominal: Present soft, tenderness (difuse) and normal bowel sounds; Absent distention, guarding, rebound and rigidity Extremities Extremities: Present normal capillary refill; Absent pedal edema Neurological Neurological: Present alert and oriented X3 Psychiatric Psychiatric: Present normal affect and normal mood Skin Skin: Present warm (WNL), dry, intact and normal color Course Vital Signs Vital signs: Vital Signs Temperature 97.8 F 08/11/20 14:51 Pulse Rate 128 H 08/11/20 14:51 Respiratory Rate 20 08/11/20 14:51 Blood Pressure 158/95 08/11/20 14:51 Pulse Oximetry (%) 98 08/11/20 14:51 Temperature 97.8 F 08/11/20 14:51 Pulse Rate 123 H 08/11/20 16:31 Respiratory Rate 20 08/11/20 14:51 Blood Pressure 159/97 08/11/20 16:31 Pulse Oximetry (%) 99 08/11/20 16:31 MDM MDM Narrative Medical decision making narrative: Narrative: [id number] Dr. Peterson agrees to accept pt, pt to ICU Lab Data Lab results reviewed: Yes I reviewed the patient's lab results. Result diagrams: 08/11/20 15:26 08/11/20 15:26 Labs: Lab Results 08/11/20 08/11/20 08/11/20 Range/Units 15:03 15:26 15:26 WBC 23.3 H (4.5-11.0) K/mcL RBC 5.32 (4.50-5.90) M/mcL Hgb 15.7 (13.5-16.5) g/dL Hct 45.5 (41.0-55.0) % POC Hct 47 (41-55) % MCV 85.5 (80.0-100.0) fL MCH 29.5 (26.0-34.0) pg MCHC 34.5 (31.0-36.0) g/dL RDW 12.4 (11.5-14.5) % Plt Count 296 (140-440) K/mcL MPV 10.1 (7.4-10.4) fL Neut % (Auto) 91.2 H (38.0-78.0) % Lymph % (Auto) 3.8 L (15.0-49.0) % [place] % (Auto) 4.9 (1.0-12.0) % Eos % (Auto) 0 (0.0-7.0) % Baso % (Auto) 0.1 (0.0-2.0) % Lymph # (Auto) 0.89 L (1.50-4.80) K/mcL [place] # (Auto) 1.15 H (0.10-0.90) K/mcL Eos # (Auto) 0 (0.00-0.70) K/mcL Baso # (Auto) 0.03 (0.00-0.20) K/mcL Absolute Neutrophils 21.27 H (1.80-8.00) K/mcL ABG Methemoglobin (0.4-1.5) % VBG pH (7.32-7.42) U VBG pCO2 (41.0-51.0) mmHg VBG pO2 (25.0-40.0) mmHg VBG HCO3 (24.0-28.0) mmol/L VBG Total CO2 (25.0-29.0) mmol/L VBG O2 Saturation (40.0-70.0) % VBG Base Excess (-2-3) VBG Lactic Acid 2.5 H (0.5-2.0) mmol/L Carboxyhemoglobin (0.0-1.5) % THgb Total Hemoglobin (13.5-16.5) gm/Dl POC Sodium 132 L (133-145) mEq/L Sodium 133 (133-145) mmol/L POC Potassium 3.9 (3.3-5.1) mEql/L Potassium 4.0 (3.3-5.1) mmol/L POC Chloride 95 L (96-108) mEq/L Chloride 89 L (96-108) mmol/L Carbon Dioxide 18 L (22-30) mmol/L POC Total CO2 24 (22-30) mmol/L Anion Gap 26.0 H (8.0-16.0) POC BUN 54 H (6-20) mg/dL BUN 54 H (6-20) mg/dL Creatinine 1.7 H (0.7-1.2) mg/dL POC Creatinine 1.7 H (0.6-1.2) mg/dL GFR Calculation 51 Glucose 516 H* (70-105) mg/dL POC Glucose 520 H (70-105) mg/dL Calcium 9.3 (8.6-10.4) mg/dL POC WB Ioniz Calcium 1.04 L (1.16-1.32) mmEq/L Total Bilirubin 1.3 H (0.1-1.0) mg/dL AST 28 (<40) U/L ALT 29 (<40) U/L Alkaline Phosphatase 98 (39-117) U/L Total Protein 7.5 (5.9-8.4) gm/dL Albumin 4.5 (3.2-5.2) gm/dL Globulin 3.0 (2.2-3.7) gm/dL Albumin/Globulin Ratio 1.5 (1.0-2.3) Lipase 8 (7-60) U/L Beta-Hydroxybutyrate (<0.27) mmol/L Urine Color Urine Appearance (Clear) Urine pH (5.0-9.0) Ur Specific [place] (1.000-1.035) Urine Protein (Negative) mg/dL Urine Glucose (UA) (Negative) mg/dL Urine Ketones (Negative) mg/dL Urine Occult Blood (Negative) mg/dL Urine Nitrate (Negative) Urine Bilirubin (Negative) mg/dL Urine Urobilinogen mg/dL Ur Leukocyte Esterase (Negative) /ug Urine RBC (0-1) /hpf Urine WBC (0-4) /hpf Ur Squamous Epith Cells (0-4) /hpf Urine Bacteria (0) /hpf Hyaline Casts (0-2) /lph Urine Mucus (None) /hpf Urine Sperm (Absent) /hpf Ur Culture Indicated? SARS-CoV-2 (PCR) (Negative) 08/11/20 08/11/20 08/11/20 Range/Units 15:26 15:27 15:45 WBC (4.5-11.0) K/mcL RBC (4.50-5.90) M/mcL Hgb (13.5-16.5) g/dL Hct (41.0-55.0) % POC Hct (41-55) % MCV (80.0-100.0) fL MCH (26.0-34.0) pg MCHC (31.0-36.0) g/dL RDW (11.5-14.5) % Plt Count (140-440) K/mcL MPV (7.4-10.4) fL Neut % (Auto) (38.0-78.0) % Lymph % (Auto) (15.0-49.0) % [place] % (Auto) (1.0-12.0) % Eos % (Auto) (0.0-7.0) % Baso % (Auto) (0.0-2.0) % Lymph # (Auto) (1.50-4.80) K/mcL [place] # (Auto) (0.10-0.90) K/mcL Eos # (Auto) (0.00-0.70) K/mcL Baso # (Auto) (0.00-0.20) K/mcL Absolute Neutrophils (1.80-8.00) K/mcL ABG Methemoglobin 0.2 L (0.4-1.5) % VBG pH 7.52 H (7.32-7.42) U VBG pCO2 20.6 L (41.0-51.0) mmHg VBG pO2 187.0 H (25.0-40.0) mmHg VBG HCO3 17.8 L (24.0-28.0) mmol/L VBG Total CO2 18.4 L (25.0-29.0) mmol/L VBG O2 Saturation 96.6 H (40.0-70.0) % VBG Base Excess -2 (-2-3) VBG Lactic Acid (0.5-2.0) mmol/L Carboxyhemoglobin 2.8 H (0.0-1.5) % THgb Total Hemoglobin 15.5 (13.5-16.5) gm/Dl POC Sodium (133-145) mEq/L Sodium (133-145) mmol/L POC Potassium (3.3-5.1) mEql/L Potassium (3.3-5.1) mmol/L POC Chloride (96-108) mEq/L Chloride (96-108) mmol/L Carbon Dioxide (22-30) mmol/L POC Total CO2 (22-30) mmol/L Anion Gap (8.0-16.0) POC BUN (6-20) mg/dL BUN (6-20) mg/dL Creatinine (0.7-1.2) mg/dL POC Creatinine (0.6-1.2) mg/dL GFR Calculation Glucose (70-105) mg/dL POC Glucose (70-105) mg/dL Calcium (8.6-10.4) mg/dL POC WB Ioniz Calcium (1.16-1.32) mmEq/L Total Bilirubin (0.1-1.0) mg/dL AST (<40) U/L ALT (<40) U/L Alkaline Phosphatase (39-117) U/L Total Protein (5.9-8.4) gm/dL Albumin (3.2-5.2) gm/dL Globulin (2.2-3.7) gm/dL Albumin/Globulin Ratio (1.0-2.3) Lipase (7-60) U/L Beta-Hydroxybutyrate 3.50 H (<0.27) mmol/L Urine Color Yellow Urine Appearance Clear (Clear) Urine pH 5.0 (5.0-9.0) Ur Specific [place] 1.026 (1.000-1.035) Urine Protein Negative (Negative) mg/dL Urine Glucose (UA) >=500 A (Negative) mg/dL Urine Ketones 20 A (Negative) mg/dL Urine Occult Blood Negative (Negative) mg/dL Urine Nitrate Negative (Negative) Urine Bilirubin Negative (Negative) mg/dL Urine Urobilinogen Negative mg/dL Ur Leukocyte Esterase Negative (Negative) /ug Urine RBC < 1 (0-1) /hpf Urine WBC 1 (0-4) /hpf Ur Squamous Epith Cells < 1 (0-4) /hpf Urine Bacteria None (0) /hpf Hyaline Casts 101 H (0-2) /lph Urine Mucus Mod A (None) /hpf Urine Sperm Present A (Absent) /hpf Ur Culture Indicated? No SARS-CoV-2 (PCR) (Negative) 08/11/20 Range/Units 16:00 WBC (4.5-11.0) K/mcL RBC (4.50-5.90) M/mcL Hgb (13.5-16.5) g/dL Hct (41.0-55.0) % POC Hct (41-55) % MCV (80.0-100.0) fL MCH (26.0-34.0) pg MCHC (31.0-36.0) g/dL RDW (11.5-14.5) % Plt Count (140-440) K/mcL MPV (7.4-10.4) fL Neut % (Auto) (38.0-78.0) % Lymph % (Auto) (15.0-49.0) % [place] % (Auto) (1.0-12.0) % Eos % (Auto) (0.0-7.0) % Baso % (Auto) (0.0-2.0) % Lymph # (Auto) (1.50-4.80) K/mcL [place] # (Auto) (0.10-0.90) K/mcL Eos # (Auto) (0.00-0.70) K/mcL Baso # (Auto) (0.00-0.20) K/mcL Absolute Neutrophils (1.80-8.00) K/mcL ABG Methemoglobin (0.4-1.5) % VBG pH (7.32-7.42) U VBG pCO2 (41.0-51.0) mmHg VBG pO2 (25.0-40.0) mmHg VBG HCO3 (24.0-28.0) mmol/L VBG Total CO2 (25.0-29.0) mmol/L VBG O2 Saturation (40.0-70.0) % VBG Base Excess (-2-3) VBG Lactic Acid (0.5-2.0) mmol/L Carboxyhemoglobin (0.0-1.5) % THgb Total Hemoglobin (13.5-16.5) gm/Dl POC Sodium (133-145) mEq/L Sodium (133-145) mmol/L POC Potassium (3.3-5.1) mEql/L Potassium (3.3-5.1) mmol/L POC Chloride (96-108) mEq/L Chloride (96-108) mmol/L Carbon Dioxide (22-30) mmol/L POC Total CO2 (22-30) mmol/L Anion Gap (8.0-16.0) POC BUN (6-20) mg/dL BUN (6-20) mg/dL Creatinine (0.7-1.2) mg/dL POC Creatinine (0.6-1.2) mg/dL GFR Calculation Glucose (70-105) mg/dL POC Glucose (70-105) mg/dL Calcium (8.6-10.4) mg/dL POC WB Ioniz Calcium (1.16-1.32) mmEq/L Total Bilirubin (0.1-1.0) mg/dL AST (<40) U/L ALT (<40) U/L Alkaline Phosphatase (39-117) U/L Total Protein (5.9-8.4) gm/dL Albumin (3.2-5.2) gm/dL Globulin (2.2-3.7) gm/dL Albumin/Globulin Ratio (1.0-2.3) Lipase (7-60) U/L Beta-Hydroxybutyrate (<0.27) mmol/L Urine Color Urine Appearance (Clear) Urine pH (5.0-9.0) Ur Specific [place] (1.000-1.035) Urine Protein (Negative) mg/dL Urine Glucose (UA) (Negative) mg/dL Urine Ketones (Negative) mg/dL Urine Occult Blood (Negative) mg/dL Urine Nitrate (Negative) Urine Bilirubin (Negative) mg/dL Urine Urobilinogen mg/dL Ur Leukocyte Esterase (Negative) /ug Urine RBC (0-1) /hpf Urine WBC (0-4) /hpf Ur Squamous Epith Cells (0-4) /hpf Urine Bacteria (0) /hpf Hyaline Casts (0-2) /lph Urine Mucus (None) /hpf Urine Sperm (Absent) /hpf Ur Culture Indicated? SARS-CoV-2 (PCR) Negative (Negative) Radiology Data Radiology results reviewed: Yes I reviewed the patient's radiology results. Discharge Plan Patient/Caregiver Discharge Instructions Pt seen by DAIRY QUALITY ASSURANCE OFFICER/PA only: Yes Clinical Impression: Diabetes, Non-compliance, Diabetic gastroparesis, DKA (diabetic ketoacidoses), Elevated serum creatinine, Acute dehydration, Abdominal pain Patient Disposition: Xfer As Inpt ([facility]) Condition: Fair Follow up with: No,PCP [Primary Care Provider] - Katya Dumont MD [Physician] -
--- NOTE | 2020-08-11 17:44 | Internal Med History&Physical ---
HPI History of Present Illness Patient information: Note initiated : 08/11/20 at 5:41 pm Service Date, if different from initiated Date: [] Patient: Ion Ames a 35 y/o M admitted on for nausea, vomiting. Chief Complaint: Nausea vomiting History of present illness: Mr. Ames is a 35 year old M who recently moved from [place] a week ago with a history of IDDM managed on insulin pump. Patient has been in his baseline state of health until 2 days prior to presentation started noticing malaise/nausea along with diarrhea. Symptoms progressed to the point patient became extremely dehydrated unable to take anything by mouth and unable to function. He endorses to recurrent emesis followed by bloodstained emesis along with significant epigastric pain 6 out of 10 to 8 out of 10 made worse with attempted vomiting. He felt that his insulin pump has malfunctioned. He presents to the ER with above symptoms. Initial work-up was consistent with severe DKA with elevated anion gap/ketones/blood sugars over 400, CHUYITA with creatinine 1.7 and white count over 23,000. CT scan abdomen unremarkable for acute process. Patient was started on insulin drip/crystalloids and subsequently hospitalist service was consulted At the time of my evaluation patient is very anxious and distressed. He is unable to have a conversation due to severe discomfort from epigastric pain. Endorses to prior hospitalization for DKA at [place]. He denies recent Covid exposure or fever or chills. Denies shortness of breath. Further denies myalgia, joint swelling, rash, headache, photophobia. Review of systems 10 point review system was performed and is negative except for 1 discussed above PFSH PFSH All Active Problems (Updated 08/11/20 @ 17:50 by SUZANNE Sanders) Diabetic gastroparesis (Acute) DKA (diabetic ketoacidoses) (Acute) Elevated serum creatinine (Acute) Acute dehydration (Acute) Abdominal pain (Acute) Non-compliance (Acute) Diabetes (Acute) Medical History (Updated 08/11/20 @ 17:50 by SUZANNE Sanders) DKA (diabetic ketoacidoses) (Acute) Gastroparesis (Acute) Non-compliance (Acute) Social History smoking status: Never smoker alcohol intake frequency: does not drink substance use type: marijuana (CBD and THC pills to treat gastroperisis ) MEDS/ALLERGIES Home Medications and Allergies Home Medications Medication Instructions Recorded Confirmed Type No Known Home Meds 08/12/20 08/12/20 History Allergies Allergy/AdvReac Type Severity Reaction Status Date / Time No Known Drug Allergies Allergy Verified 08/11/20 14:54 EXAM Constitutional Vitals: Temp Pulse Resp BP Pulse Ox 97.8 F 123 H 20 159/97 99 08/11/20 14:51 08/11/20 16:31 08/11/20 14:51 08/11/20 16:31 08/11/20 16:31 Very anxious distressed Head normocephalic Oral cavity moist No ear nose discharge Eye movement symmetrical Neck supple no lymphadenopathy S1-S2 tachycardia Tachypneic but nonlabored Nondistended however tender epigastrium Lower extremity no cyanosis clubbing or joint swelling Skin no suspicious lesion Psych anxious but no hallucination Neuro normal higher function DATA Data Completed and Pending Labs: Labs from last 24 hours 08/11/20 08/11/20 08/11/20 16:00 15:45 15:27 WBC RBC Hgb Hct POC Hct MCV MCH MCHC RDW Plt Count MPV Neut % (Auto) Lymph % (Auto) [place] % (Auto) Eos % (Auto) Baso % (Auto) Lymph # (Auto) [place] # (Auto) Eos # (Auto) Baso # (Auto) Absolute Neutrophils ABG Methemoglobin VBG pH VBG pCO2 VBG pO2 VBG HCO3 VBG Total CO2 VBG O2 Saturation VBG Base Excess VBG Lactic Acid Carboxyhemoglobin Total Hemoglobin POC Sodium Sodium POC Potassium Potassium POC Chloride Chloride Carbon Dioxide POC Total CO2 Anion Gap POC BUN BUN Creatinine POC Creatinine GFR Calculation Glucose POC Glucose Calcium POC WB Ioniz Calcium Total Bilirubin AST ALT Alkaline Phosphatase Total Protein Albumin Globulin Albumin/Globulin Ratio Lipase Beta-Hydroxybutyrate 3.50 H Urine Color Yellow Urine Appearance Clear Urine pH 5.0 Ur Specific [place] 1.026 Urine Protein Negative Urine Glucose (UA) >=500 A Urine Ketones 20 A Urine Occult Blood Negative Urine Nitrate Negative Urine Bilirubin Negative Urine Urobilinogen Negative Ur Leukocyte Esterase Negative Urine RBC < 1 Urine WBC 1 Ur Squamous Epith Cells < 1 Urine Bacteria None Hyaline Casts 101 H Urine Mucus Mod A Urine Sperm Present A Ur Culture Indicated? No SARS-CoV-2 (PCR) Negative 08/11/20 08/11/20 08/11/20 15:26 15:26 15:26 WBC 23.3 H RBC 5.32 Hgb 15.7 Hct 45.5 POC Hct 47 MCV 85.5 MCH 29.5 MCHC 34.5 RDW 12.4 Plt Count 296 MPV 10.1 Neut % (Auto) 91.2 H Lymph % (Auto) 3.8 L [place] % (Auto) 4.9 Eos % (Auto) 0 Baso % (Auto) 0.1 Lymph # (Auto) 0.89 L [place] # (Auto) 1.15 H Eos # (Auto) 0 Baso # (Auto) 0.03 Absolute Neutrophils 21.27 H ABG Methemoglobin 0.2 L VBG pH 7.52 H VBG pCO2 20.6 L VBG pO2 187.0 H VBG HCO3 17.8 L VBG Total CO2 18.4 L VBG O2 Saturation 96.6 H VBG Base Excess -2 VBG Lactic Acid Carboxyhemoglobin 2.8 H Total Hemoglobin 15.5 POC Sodium 132 L Sodium 133 POC Potassium 3.9 Potassium 4.0 POC Chloride 95 L Chloride 89 L Carbon Dioxide 18 L POC Total CO2 24 Anion Gap 26.0 H POC BUN 54 H BUN 54 H Creatinine 1.7 H POC Creatinine 1.7 H GFR Calculation 51 Glucose 516 H* POC Glucose 520 H Calcium 9.3 POC WB Ioniz Calcium 1.04 L Total Bilirubin 1.3 H AST 28 ALT 29 Alkaline Phosphatase 98 Total Protein 7.5 Albumin 4.5 Globulin 3.0 Albumin/Globulin Ratio 1.5 Lipase 8 Beta-Hydroxybutyrate Urine Color Urine Appearance Urine pH Ur Specific [place] Urine Protein Urine Glucose (UA) Urine Ketones Urine Occult Blood Urine Nitrate Urine Bilirubin Urine Urobilinogen Ur Leukocyte Esterase Urine RBC Urine WBC Ur Squamous Epith Cells Urine Bacteria Hyaline Casts Urine Mucus Urine Sperm Ur Culture Indicated? SARS-CoV-2 (PCR) 08/11/20 15:03 WBC RBC Hgb Hct POC Hct MCV MCH MCHC RDW Plt Count MPV Neut % (Auto) Lymph % (Auto) [place] % (Auto) Eos % (Auto) Baso % (Auto) Lymph # (Auto) [place] # (Auto) Eos # (Auto) Baso # (Auto) Absolute Neutrophils ABG Methemoglobin VBG pH VBG pCO2 VBG pO2 VBG HCO3 VBG Total CO2 VBG O2 Saturation VBG Base Excess VBG Lactic Acid 2.5 H Carboxyhemoglobin Total Hemoglobin POC Sodium Sodium POC Potassium Potassium POC Chloride Chloride Carbon Dioxide POC Total CO2 Anion Gap POC BUN BUN Creatinine POC Creatinine GFR Calculation Glucose POC Glucose Calcium POC WB Ioniz Calcium Total Bilirubin AST ALT Alkaline Phosphatase Total Protein Albumin Globulin Albumin/Globulin Ratio Lipase Beta-Hydroxybutyrate Urine Color Urine Appearance Urine pH Ur Specific [place] Urine Protein Urine Glucose (UA) Urine Ketones Urine Occult Blood Urine Nitrate Urine Bilirubin Urine Urobilinogen Ur Leukocyte Esterase Urine RBC Urine WBC Ur Squamous Epith Cells Urine Bacteria Hyaline Casts Urine Mucus Urine Sperm Ur Culture Indicated? SARS-CoV-2 (PCR) A/P Narrative A/P Narrative: * DKA-continue management protocol. Aggressive crystalloid replacement/insulin drip/antiemetics/serial electrolytes * SEPSIS with end organ dysfunction including CHUYITA/elevated bilirubin. Unclear source. Start empiric antibiotics. Pancultures. * CHUYITA-secondary to sepsis endorgan dysfunction and volume depletion from underlying DKA. Continue crystalloids, monitor renal function, avoid nephrotoxins * Severe nausea vomiting secondary to underlying gastroparesis/DKA. Continue as needed antiemetics/supportive management * Hematemesis likely secondary to recurrent emesis and Bren-Ramos tear. S tart PPI/n.p.o./crystalloids/antiemetics and bowel rest * Prophylaxis SCDs/ambulation * Full code Plan * Inpatient admission for DKA * ICU care * Bowel rest/antiemetics/PPI/crystalloids * Monitor renal function * Serum electrolytes/DKA management protocol Critical care time spent on management of DKA over 35 minutes in addition to time spent Physical Time Spent With Patient Time: Total time spent is greater than 50% in coordination of care (as documented) at patient's floor/unit and/or counseling patient:
[2020-08-11] MEDS: 0.9 % SODIUM CHLORIDE 1,000 ML IV SCH (19:09)
[2020-08-11] MEDS: DEXTROSE 5%-1/2NS 1,000 ML IV SCH (20:38)
[2020-08-11] MEDS ORDERED: 0.45 % SODIUM CHLORIDE 1,000 ML IV SCH (22:37)
[2020-08-11] MEDS ORDERED: POTASSIUM PHOSPHATE 20 MEQ in DEXTROSE 5% IN WATER 250 ML IV ONE (22:37)
[2020-08-11] MEDS ORDERED: POTASSIUM CHLORIDE 20 MEQ in DEXTROSE 5% IN WATER 250 ML IV ONE (22:37)
[2020-08-11] MEDS ORDERED: POTASSIUM CHLORIDE 20 MEQ/10 ML VIAL IV ONE (23:45)
[2020-08-11] MEDS ORDERED: cefTRIAXone 1 GM VIAL ONE (23:46)
[2020-08-11] MEDS ORDERED: POTASSIUM PHOSPHATE 66 MEQ/15 ML VIAL IV ONE (23:47)
[2020-08-11 23:53] LABS: ABG Methemoglobin 0.3 % (0.4-1.5); VBG Base Excess 0 (-2-3); VBG HCO3 24.5 mmol/L (24.0-28.0); VBG Oxygen Saturation 93.4 % (40.0-70.0); VBG PCO2 39.1 mmHg (41.0-51.0); VBG PH 7.41 U (7.32-7.42); VBG PO2 86.1 mmHg (25.0-40.0); VBG Total CO2 25.7 mmol/L (25.0-29.0)
[2020-08-12] MEDS: PANTOPRAZOLE 40 MG VIAL IV SCH ×3 (00:17→17:58)
[2020-08-12] MEDS: MAGNESIUM SULFATE 2 GM/50 ML BAG IV ONE ×2 (00:49→01:22)
[2020-08-12] MEDS ORDERED: MAGNESIUM SULFATE 2 GM/50 ML BAG IV ONE (00:55)
[2020-08-12] MEDS: ONDANSETRON 4 MG/2 ML VIAL IV PRN ×2 (01:37→05:14)
[2020-08-12] MEDS ORDERED: ONDANSETRON 4 MG/2 ML VIAL ONE ×2 (01:43→05:20)
[2020-08-12] MEDS: cefTRIAXone 2 GM in DEXTROSE 5% IN WATER 50 ML IV SCH ×2 (02:16→15:20)
[2020-08-12] MEDS: DEXTROSE 5%-1/2NS 1,000 ML IV SCH ×6 (03:26→22:05)
[2020-08-12 05:11] LABS: ABG Methemoglobin 0.3 % (0.4-1.5); VBG Base Excess 2 (-2-3); VBG HCO3 25.2 mmol/L (24.0-28.0); VBG Oxygen Saturation 94.9 % (40.0-70.0); VBG PCO2 34.4 mmHg (41.0-51.0); VBG PH 7.48 U (7.32-7.42); VBG PO2 111.1 mmHg (25.0-40.0); VBG Total CO2 26.2 mmol/L (25.0-29.0)
[2020-08-12 05:46] LABS: Basophils # (Auto) 0.03 K/mcL (0.00-0.20); Basophils % (Auto) 0.1 % (0.0-2.0); Eosinophils # (Auto) 0.01 K/mcL (0.00-0.70); Eosinophils % (Auto) 0 % (0.0-7.0); Hematocrit 42.4 % (41.0-55.0); Hemoglobin 14.3 g/dL (13.5-16.5); Lymphocytes # (Auto) 1.62 K/mcL (1.50-4.80); Lymphocytes % (Auto) 7.4 % (15.0-49.0); Mean Cell Volume 89.3 fL (80.0-100.0); Mean Corpuscular HGB Conc 33.7 g/dL (31.0-36.0); Mean Platelet Volume 9.8 fL (7.4-10.4); Monocytes # (Auto) 1.59 K/mcL (0.10-0.90); Monocytes % (Auto) 7.3 % (1.0-12.0); Neutrophils % (Auto) 85.2 % (38.0-78.0); Platelet Count 242 K/mcL (140-440); RBC 4.75 M/mcL (4.50-5.90); Red Cell Distribution Width 12.5 % (11.5-14.5); WBC 21.8 K/mcL (4.5-11.0)
[2020-08-12 05:53] LABS: Carbon Dioxide 21 mmol/L (22-30); Chloride 96 mmol/L (96-108)
[2020-08-12] MEDS: 0.9 % SODIUM CHLORIDE 1,000 ML IV SCH (06:44)
[2020-08-12 06:46] LABS: ALT/SGPT 24 U/L (<40); AST/SGOT 24 U/L (<40); Albumin 3.8 gm/dL (3.2-5.2); Albumin/Globulin Ratio 1.5 (1.0-2.3); Alkaline Phosphatase 83 U/L (39-117); Bilirubin,Direct < 0.2 mg/dL (<0.3); Bilirubin,Total 0.8 mg/dL (0.1-1.0); Blood Urea Nitrogen 24 mg/dL (6-20); Calcium 8.8 mg/dL (8.6-10.4); Carbon Dioxide 23 mmol/L (22-30); Chloride 97 mmol/L (96-108); Globulin 2.6 gm/dL (2.2-3.7); Glomerular Filtration Rate 98; Glucose 176 mg/dL (70-105); Lactate Dehydrogenase 193 U/L (135-225); Phosphorous 3.1 mg/dL (2.5-4.5); Triglycerides 143 mg/dL (<150); Uric Acid 6.2 mg/dL (2.5-8.0)
[2020-08-12] MEDS: INSULIN REGULAR, HUMAN 50 UNIT in 0.9 % SODIUM CHLORIDE 99.5 ML IV SCH (07:15)
[2020-08-12 10:17] LABS: Carbon Dioxide 26 mmol/L (22-30); Chloride 98 mmol/L (96-108)
[2020-08-12] MEDS: PROMETHAZINE 25 MG/ML VIAL IV PRN ×3 (10:49→23:03)
--- NOTE | 2020-08-12 14:16 | Internal Med Progress Note ---
SUBJECTIVE Subjective Patient information: Note initiated : 08/12/20 at 2:12 pm Service Date, if different from initiated Date: [] Patient: Ion Ames a 35 y/o M admitted on 08/11/20 for nausea, vomiting. Chief Complaint: History of present illness: Mr. Ames is a 35 year old M who recently moved from [place] a week ago with a history of IDDM managed on insulin pump. Patient has been in his baseline state of health until 2 days prior to presentation started noticing malaise/nausea along with diarrhea. Symptoms progressed to the point patient became extremely dehydrated unable to take anything by mouth and unable to function. He endorses to recurrent emesis followed by bloodstained emesis along with significant epigastric pain 6 out of 10 to 8 out of 10 made worse with attempted vomiting. He felt that his insulin pump has malfunctioned. He presents to the ER with above symptoms. Initial work-up was consistent with severe DKA with elevated anion gap/ketones/blood sugars over 400, CHUYITA with creatinine 1.7 and white count over 23,000. CT scan abdomen unremarkable for a cute process. Patient was started on insulin drip/crystalloids and subsequently hospitalist service was consulted At the time of my evaluation patient is very anxious and distressed. He is unable to have a conversation due to severe discomfort from epigastric pain. Endorses to prior hospitalization for DKA at [place]. He denies recent Covid exposure or fever or chills. Denies shortness of breath. Further denies myalgia, joint swelling, rash, headache, photophobia. 08/12-patient on DKA protocol. White count down to 21.8. On antibiotic coverage. Continue insulin drip/crystalloids/management protocol. Venous pH improved to 7.41, bicarb 26, anion gap down to 15 with improved creatinine down to 1 from 1.7. Blood sugars at goal. On insulin drip. Persistent nausea and recurrent emesis. Continue PPI/bowel rest/antiemetics. Patient's would bring the missing insulin pump part that caused malfunction. Attempt transition to subcu insulin in 24 hours once patient able to take orally. Constitutional Vitals: Vital Signs Temp Pulse Resp BP Pulse Ox 98.6 F 99 H 16 144/95 100 08/12/20 12:01 08/12/20 13:01 08/12/20 13:01 08/12/20 13:01 08/12/20 13:01 Period Temp Pulse Resp BP Sys/Gould Pulse Ox Last 24 Hr 97.8 F-99.8 F 74-128 13-28 112-206/72-166 89-100 Intake and Output 08/12/20 08/12/20 08/12/20 05:59 13:59 21:59 Intake Total 1615.5455 997 Output Total 750 700 Balance 865.5455 297 Weight 65.771 kg 71.35 kg Patient Weight 08/13/20 05:59 Weight 71.35 kg very anxious frequent retching nonlabored breathing Complains abdominal discomfort. Intake & Output: Intake & Output 08/12/20 08/12/20 08/12/20 05:59 13:59 21:59 Intake Total 1615.5455 997 Output Total 750 700 Balance 865.5455 297 Weight 65.771 kg 71.35 kg Intake: IV 1615.5455 997 Dextrose 5%-1/2Ns IV Solution 1 1000 958 ,000 ml @ 100 mls/hr IV .Q10H [facility] Rx#:[id number] HumuLIN R 50 UNIT In Sodium 51 39 Chloride 0.9% 99.5 ml @ 6.5 UNIT/HR 13 mls/hr IV DUR [facility] Rx #:[id number] Potassium Chloride 20 Meq In 260 Dextrose 5% in Water 250 ml @ 130 mls/hr IV ONCE ONE Rx#: [id number] Potassium Phosphate 20 Meq In 254.5455 Dextrose 5% in Water 250 ml @ 127.273 mls/hr IV ONCE ONE Rx#: [id number] Output: Void Amount 600 500 # of times incontinent of urine 0 Emesis 150 200 Other: Urine Appearance Clear Clear Urine Color Dark Yellow Dark Yellow Urine Odor Normal Stool Size Moderate Stool Color Green Brown Stool Consistency Liquid Loose # Voids 1 OBJ DATA Labs CBC & Chem 7: 08/12/20 04:27 08/12/20 06:48 Labs: Abnormal Lab Results 08/12/20 08/12/20 08/12/20 04:28 04:27 04:27 WBC 21.8 H Neut % (Auto) 85.2 H Lymph % (Auto) 7.4 L Lymph # (Auto) [place] # (Auto) 1.59 H Absolute Neutrophils 18.58 H ABG Methemoglobin VBG pH VBG pCO2 VBG pO2 VBG HCO3 VBG Total CO2 VBG O2 Saturation VBG Lactic Acid Carboxyhemoglobin POC Sodium POC Chloride Chloride Carbon Dioxide Anion Gap POC BUN BUN 24 H Creatinine POC Creatinine Glucose 176 H POC Glucose POC WB Ioniz Calcium Magnesium 2.7 H Total Bilirubin Beta-Hydroxybutyrate Procalcitonin 0.46 H Urine Glucose (UA) Urine Ketones Hyaline Casts Urine Mucus Urine Sperm 08/12/20 08/11/20 08/11/20 04:27 23:25 23:25 WBC Neut % (Auto) Lymph % (Auto) Lymph # (Auto) [place] # (Auto) Absolute Neutrophils ABG Methemoglobin 0.3 L 0.3 L VBG pH 7.48 H VBG pCO2 34.4 L 39.1 L VBG pO2 111.1 H 86.1 H VBG HCO3 VBG Total CO2 VBG O2 Saturation 94.9 H 93.4 H VBG Lactic Acid Carboxyhemoglobin 3.5 H 3.5 H POC Sodium POC Chloride Chloride Carbon Dioxide 21 L Anion Gap 17.0 H POC BUN BUN Creatinine POC Creatinine Glucose POC Glucose POC WB Ioniz Calcium Magnesium Total Bilirubin Beta-Hydroxybutyrate Procalcitonin Urine Glucose (UA) Urine Ketones Hyaline Casts Urine Mucus Urine Sperm 08/11/20 08/11/20 08/11/20 15:45 15:27 15:26 WBC Neut % (Auto) Lymph % (Auto) Lymph # (Auto) [place] # (Auto) Absolute Neutrophils ABG Methemoglobin 0.2 L VBG pH 7.52 H VBG pCO2 20.6 L VBG pO2 187.0 H VBG HCO3 17.8 L VBG Total CO2 18.4 L VBG O2 Saturation 96.6 H VBG Lactic Acid Carboxyhemoglobin 2.8 H POC Sodium POC Chloride Chloride Carbon Dioxide Anion Gap POC BUN BUN Creatinine POC Creatinine Glucose POC Glucose POC WB Ioniz Calcium Magnesium Total Bilirubin Beta-Hydroxybutyrate 3.50 H Procalcitonin Urine Glucose (UA) >=500 A Urine Ketones 20 A Hyaline Casts 101 H Urine Mucus Mod A Urine Sperm Present A 08/11/20 08/11/20 08/11/20 15:26 15:26 15:03 WBC 23.3 H Neut % (Auto) 91.2 H Lymph % (Auto) 3.8 L Lymph # (Auto) 0.89 L [place] # (Auto) 1.15 H Absolute Neutrophils 21.27 H ABG Methemoglobin VBG pH VBG pCO2 VBG pO2 VBG HCO3 VBG Total CO2 VBG O2 Saturation VBG Lactic Acid 2.5 H Carboxyhemoglobin POC Sodium 132 L POC Chloride 95 L Chloride 89 L Carbon Dioxide 18 L Anion Gap 26.0 H POC BUN 54 H BUN 54 H Creatinine 1.7 H POC Creatinine 1.7 H Glucose 516 H* POC Glucose 520 H POC WB Ioniz Calcium 1.04 L Magnesium Total Bilirubin 1.3 H Beta-Hydroxybutyrate Procalcitonin Urine Glucose (UA) Urine Ketones Hyaline Casts Urine Mucus Urine Sperm Meds: Medications Diagnostic Test (Pha) (Accu-Chek) 1 each FS Q1 [facility] Last Admin: 08/12/20 12:53 Dose: 1 each Documented by: Insulin Human Regular 50 unit/ (Sodium Chloride) 100 mls @ 13 mls/hr IV DUR [facility] ; Protocol Last Titration: 08/12/20 12:54 Dose: 1.5 unit/hr, 3 mls/hr Documented by: Dextrose/Sodium Chloride (Dextrose 5%-1/2ns Iv Solution) 1,000 mls @ 100 mls/hr IV .Q10H [facility] Last Admin: 08/12/20 13:01 Dose: 100 mls/hr Documented by: Ceftriaxone Sodium 2 gm/ (Dextrose) 50 mls @ 100 mls/hr IV Q24H [facility]; Protocol Last Admin: 08/12/20 02:16 Dose: Not Given Documented by: Ondansetron HCl (Zofran) 4 mg IV Q4-6HP PRN PRN Reason: Nausea And Vomiting Last Admin: 08/12/20 05:14 Dose: 4 mg Documented by: Pantoprazole Sodium (Protonix) 40 mg IV [facility] Last Admin: 08/12/20 07:22 Dose: 40 mg Documented by: Promethazine HCl (Phenergan) 12.5 mg IV Q4-6HP PRN PRN Reason: Nausea And Vomiting Last Admin: 08/12/20 10:49 Dose: 12.5 mg Documented by: ABG Interpretation ABG results: 08/11/20 08/11/20 08/12/20 15:26 23:25 04:27 ABG Methemoglobin 0.2 L 0.3 L 0.3 L VBG pH 7.52 H 7.41 7.48 H VBG pCO2 20.6 L 39.1 L 34.4 L VBG pO2 187.0 H 86.1 H 111.1 H VBG HCO3 17.8 L 24.5 25.2 VBG Total CO2 18.4 L 25.7 26.2 VBG O2 Saturation 96.6 H 93.4 H 94.9 H VBG Base Excess -2 0 2 A/P Narrative A/P Narrative: * DKA-clinically improving with management protocol. Continue insulin drip. On electrolyte replacement as indicated. * SEPSIS with end organ dysfunction including CHUYITA/elevated bilirubin. On antibiotic coverage. Source unclear. Clinically improving. * CHUYITA-clinically improved. Creatinine down from 1.7-1. * Severe nausea vomiting secondary to underlying gastroparesis/DKA. Continue bowel rest/antiemetics/PPI * Hematemesis likely secondary to recurrent emesis and Bren-Ramos tear. Continue PPI/n.p.o./crystalloids/antiemetics and bowel rest * Elevated bilirubin sepsis endorgan dysfunction. Resolved * Prophylaxis SCDs/ambulation * Full code Plan * Continue DKA management protocol * Antiemetics/PPI/crystalloids * Electrolyte replacement as indicated * Bowel rest Critical care time spent on management of DKA over 35 minutes in addition to time spent Physical Time Spent With Patient Time: Total time spent is greater than 50% in coordination of care (as documented) at patient's floor/unit and/or counseling patient: QUALITY VTE Deep Vein Thrombosis/Pulmonary Embolism Present on Admission: No
[2020-08-12 22:43] LABS: Carbon Dioxide 23 mmol/L (22-30); Chloride 100 mmol/L (96-108)
[2020-08-12 23:42] LABS: Carbon Dioxide 25 mmol/L (22-30); Chloride 100 mmol/L (96-108)
[2020-08-13] MEDS ORDERED: INSULIN REGULAR, HUMAN 1 UNIT/0.01 ML UNIT ONE ×2 (00:35→00:58)
[2020-08-13] MEDS: INSULIN REGULAR, HUMAN 50 UNIT in 0.9 % SODIUM CHLORIDE 99.5 ML IV SCH ×2 (04:05→20:02)
[2020-08-13] MEDS: DEXTROSE 5%-1/2NS 1,000 ML IV SCH ×3 (05:24→18:41)
[2020-08-13 06:32] LABS: Basophils # (Auto) 0.02 K/mcL (0.00-0.20); Basophils % (Auto) 0.2 % (0.0-2.0); Eosinophils # (Auto) 0.01 K/mcL (0.00-0.70); Eosinophils % (Auto) 0.1 % (0.0-7.0); Hematocrit 41.4 % (41.0-55.0); Hemoglobin 13.7 g/dL (13.5-16.5); Lymphocytes # (Auto) 1.62 K/mcL (1.50-4.80); Mean Cell Volume 90.4 fL (80.0-100.0); Mean Corpuscular HGB Conc 33.1 g/dL (31.0-36.0); Mean Platelet Volume 9.9 fL (7.4-10.4); Monocytes # (Auto) 1.01 K/mcL (0.10-0.90); Monocytes % (Auto) 8.7 % (1.0-12.0); Platelet Count 226 K/mcL (140-440); RBC 4.58 M/mcL (4.50-5.90); Red Cell Distribution Width 11.9 % (11.5-14.5); WBC 11.6 K/mcL (4.5-11.0)
[2020-08-13 07:12] LABS: ALT/SGPT 21 U/L (<40); AST/SGOT 20 U/L (<40); Albumin 3.5 gm/dL (3.2-5.2); Albumin/Globulin Ratio 1.3 (1.0-2.3); Alkaline Phosphatase 86 U/L (39-117); Bilirubin,Direct 0.2 mg/dL (<0.3); Bilirubin,Total 1.1 mg/dL (0.1-1.0); Blood Urea Nitrogen 12 mg/dL (6-20); Calcium 8.9 mg/dL (8.6-10.4); Carbon Dioxide 24 mmol/L (22-30); Chloride 98 mmol/L (96-108); Globulin 2.6 gm/dL (2.2-3.7); Glomerular Filtration Rate 116; Glucose 184 mg/dL (70-105); Lactate Dehydrogenase 165 U/L (135-225); Phosphorous 2.3 mg/dL (2.5-4.5); Triglycerides 143 mg/dL (<150); Uric Acid 3.3 mg/dL (2.5-8.0)
[2020-08-13] MEDS: PANTOPRAZOLE 40 MG VIAL IV SCH ×2 (07:27→17:52)
[2020-08-13] MEDS: PROMETHAZINE 25 MG/ML VIAL IV PRN ×3 (07:36→19:00)
[2020-08-13] MEDS: 0.9 % SODIUM CHLORIDE 1,000 ML IV SCH (08:32)
[2020-08-13] MEDS: cefTRIAXone 2 GM in DEXTROSE 5% IN WATER 50 ML IV SCH (09:25)
[2020-08-13] MEDS: ONDANSETRON 4 MG/2 ML VIAL IV PRN (10:55)
[2020-08-13] MEDS ORDERED: POTASSIUM CHLORIDE 40 MEQ in DEXTROSE 5% IN WATER 500 ML IV ONE (11:00)
[2020-08-13] MEDS: METOCLOPRAMIDE 10 MG/2 ML VIAL IV PRN ×2 (11:43→17:52)
[2020-08-13] MEDS: diphenhydrAMINE 50 MG/ML VIAL IV PRN ×2 (14:27→20:06)
--- NOTE | 2020-08-13 20:00 | Internal Med Progress Note ---
SUBJECTIVE Subjective Patient information: Note initiated : 08/13/20 at 7:59 pm Service Date, if different from initiated Date: [] Patient: Ion Ames a 35 y/o M admitted on 08/11/20 for nausea, vomiting. Chief Complaint: [] Interval history: History of present illness: Mr. Ames is a 35 year old M who recently moved from [place] a week ago with a history of IDDM managed on insulin pump. Patient has been in his baseline state of health until 2 days prior to presentation started noticing malaise/nausea along with diarrhea. Symptoms progressed to the point patient became extremely dehydrated unable to take anything by mouth and unable to function. He endorses to recurrent emesis followed by bloodstained emesis along with significant epigastric pain 6 out of 10 to 8 out of 10 made worse with attempted vomiting. He felt that his insulin pump has malfunctioned. He presents to the ER with above symptoms. Initial work-up was consistent with severe DKA with elevated anion gap/ketones/blood sugars over 400, CHUYITA with creatinine 1.7 and white count over 23,000. CT scan abdomen unremarkable for acute process. Patient was started on insulin drip/crystalloids and subsequently hospitalist service was consulted At the time of my evaluation patient is very anxious and distressed. He is unable to have a conversation due to severe discomfort from epigastric pain. Endorses to prior hospitalization for DKA at [place]. He denies recent Covid exposure or fever or chills. Denies shortness of breath. Further denies myalgia, joint swelling, rash, headache, photophobia. 08/12-patient on DKA protocol. White count down to 21.8. On antibiotic coverage. Continue insulin drip/crystalloids/management protocol. Venous pH improved to 7.41, bicarb 26, anion gap down to 15 with improved creatinine down to 1 from 1.7. Blood sugars at goal. On insulin drip. Persistent nausea and recurrent emesis. Continue PPI/bowel rest/antiemetics. Patient's would bring the missing insulin pump part that caused malfunction. Attempt transition to subcu insulin in 24 hours once patient able to take orally. 08/13-patient clinically improved. Anion gap normalized. Blood sugars improved. Currently on insulin drip at 2 units/h basal rate. will bring insulin pump in a.m. Persistent nausea requiring antiemetics. Add Reglan/Benadryl. No fever chills, stable hemodynamics. Constitutional Vitals: Vital Signs Temp Pulse Resp BP Pulse Ox 100.1 F H 77 23 H 128/79 93 08/13/20 16:01 08/13/20 12:00 08/13/20 18:07 08/13/20 18:07 08/13/20 18:07 Period Temp Pulse Resp BP Sys/Gould Pulse Ox Last 24 Hr 99.2 F-100.1 F 71-81 11-28 115-158/75-95 93-100 Intake and Output 08/13/20 08/13/20 08/13/20 05:59 13:59 21:59 Intake Total 932 2098 1542 Output Total 800 1375 150 Balance 720 372 4817 Weight 69.717 kg 70.942 kg Patient Weight 08/14/20 05:59 Weight 70.942 kg alert oriented but anxious Nonlabored breathing To telemetry events. Intake & Output: Intake & Output 08/13/20 08/13/20 08/13/20 05:59 13:59 21:59 Intake Total 932 2098 1542 Output Total 800 1375 150 Balance 477 723 9793 Weight 69.717 kg 70.942 kg Intake: IV 932 2098 1542 Sodium Chloride 0.9% 1,000 ml @ 1000 Wide Open IV [facility] Rx#: [id number] Dextrose 5%-1/2Ns IV Solution 1 907 1000 980 ,000 ml @ 100 mls/hr IV .Q10H [facility] Rx#:[id number] HumuLIN R 50 UNIT In Sodium 25 48 42 Chloride 0.9% 99.5 ml @ 6.5 UNIT/HR 13 mls/hr IV [facility] Rx #:[id number] Potassium Chloride 40 Meq In 520 Dextrose 5% in Water 500 ml @ 130 mls/hr IV ONCE ONE Rx#: [id number] Rocephin 2 gm In Dextrose 5% in 50 Water 50 ml @ 100 mls/hr IV Q24H [facility] Rx#:[id number] Oral 0 0 Output: Void Amount 650 1375 # of times incontinent of urine 0 Emesis 150 150 Other: Urine Appearance Clear Clear Urine Color Dark Yellow Dark Yellow Urine Odor Normal Stool Size Moderate Stool Color Brown Stool Consistency Liquid Loose # Voids 1 # Bowel Movements 1 # of times incontinent of 0 Bowels OBJ DATA Labs CBC & Chem 7: 08/14/20 05:00 08/14/20 05:00 Labs: Abnormal Lab Results 08/13/20 08/13/20 08/13/20 05:24 05:24 05:24 WBC 11.6 H Neut % (Auto) Lymph % (Auto) 14.0 L Lymph # (Auto) [place] # (Auto) 1.01 H Absolute Neutrophils 8.94 H ABG Methemoglobin VBG pH VBG pCO2 VBG pO2 VBG HCO3 VBG Total CO2 VBG O2 Saturation VBG Lactic Acid Carboxyhemoglobin POC Sodium POC Chloride Chloride Carbon Dioxide Anion Gap POC BUN BUN Creatinine POC Creatinine Glucose 184 H POC Glucose POC WB Ioniz Calcium Phosphorus 2.3 L Magnesium Total Bilirubin 1.1 H Beta-Hydroxybutyrate Procalcitonin 0.32 H Urine Glucose (UA) Urine Ketones Hyaline Casts Urine Mucus Urine Sperm 08/12/20 08/12/20 08/12/20 04:28 04:27 04:27 WBC 21.8 H Neut % (Auto) 85.2 H Lymph % (Auto) 7.4 L Lymph # (Auto) [place] # (Auto) 1.59 H Absolute Neutrophils 18.58 H ABG Methemoglobin VBG pH VBG pCO2 VBG pO2 VBG HCO3 VBG Total CO2 VBG O2 Saturation VBG Lactic Acid Carboxyhemoglobin POC Sodium POC Chloride Chloride Carbon Dioxide Anion Gap POC BUN BUN 24 H Creatinine POC Creatinine Glucose 176 H POC Glucose POC WB [facility] Calcium Phosphorus Magnesium 2.7 H Total Bilirubin Beta-Hydroxybutyrate Procalcitonin 0.46 H Urine Glucose (UA) Urine Ketones Hyaline Casts Urine Mucus Urine Sperm 08/12/20 08/11/20 08/11/20 04:27 23:25 23:25 WBC Neut % (Auto) Lymph % (Auto) Lymph # (Auto) [place] # (Auto) Absolute Neutrophils ABG Methemoglobin 0.3 L 0.3 L VBG pH 7.48 H VBG pCO2 34.4 L 39.1 L VBG pO2 111.1 H 86.1 H VBG HCO3 VBG Total CO2 VBG O2 Saturation 94.9 H 93.4 H VBG Lactic Acid Carboxyhemoglobin 3.5 H 3.5 H POC Sodium POC Chloride Chloride Carbon Dioxide 21 L Anion Gap 17.0 H POC BUN BUN Creatinine POC Creatinine Glucose POC Glucose POC WB Ioniz Calcium Phosphorus Magnesium Total Bilirubin Beta-Hydroxybutyrate Procalcitonin Urine Glucose (UA) Urine Ketones Hyaline Casts Urine Mucus Urine Sperm 08/11/20 08/11/20 08/11/20 15:45 15:27 15:26 WBC Neut % (Auto) Lymph % (Auto) Lymph # (Auto) [place] # (Auto) Absolute Neutrophils ABG Methemoglobin 0.2 L VBG pH 7.52 H VBG pCO2 20.6 L VBG pO2 187.0 H VBG HCO3 17.8 L VBG Total CO2 18.4 L VBG O2 Saturation 96.6 H VBG Lactic Acid Carboxyhemoglobin 2.8 H POC Sodium POC Chloride Chloride Carbon Dioxide Anion Gap POC BUN BUN Creatinine POC Creatinine Glucose POC Glucose POC WB Ioniz Calcium Phosphorus Magnesium Total Bilirubin Beta-Hydroxybutyrate 3.50 H Procalcitonin Urine Glucose (UA) >=500 A Urine Ketones 20 A Hyaline Casts 101 H Urine Mucus Mod A Urine Sperm Present A 08/11/20 08/11/20 08/11/20 15:26 15:26 15:03 WBC 23.3 H Neut % (Auto) 91.2 H Lymph % (Auto) 3.8 L Lymph # (Auto) 0.89 L [place] # (Auto) 1.15 H Absolute Neutrophils 21.27 H ABG Methemoglobin VBG pH VBG pCO2 VBG pO2 VBG HCO3 VBG Total CO2 VBG O2 Saturation VBG Lactic Acid 2.5 H Carboxyhemoglobin POC Sodium 132 L POC Chloride 95 L Chloride 89 L Carbon Dioxide 18 L Anion Gap 26.0 H POC BUN 54 H BUN 54 H Creatinine 1.7 H POC Creatinine 1.7 H Glucose 516 H* POC Glucose 520 H POC WB [facility]iz Calcium 1.04 L Phosphorus Magnesium Total Bilirubin 1.3 H Beta-Hydroxybutyrate Procalcitonin Urine Glucose (UA) Urine Ketones Hyaline Casts Urine Mucus Urine Sperm Meds: Medications Diagnostic Test (Pha) (Accu-Chek) 1 each FS Q1 [facility] Last Admin: 08/13/20 19:05 Dose: 1 each Documented by: Diphenhydramine HCl (Benadryl) 25 mg IV Q6HP PRN PRN Reason: Nausea Last Admin: 08/13/20 14:27 Dose: 25 mg Documented by: Insulin Human Regular 50 unit/ (Sodium Chloride) 100 mls @ 13 mls/hr IV DUR [facility]; Protocol Last Titration: 08/13/20 19:06 Dose: 4.5 unit/hr, 9 mls/hr Documented by: Dextrose/Sodium Chloride (Dextrose 5%-1/2ns Iv Solution) 1,000 mls @ 100 mls/hr IV .Q10H [facility] Last Admin: 08/13/20 18:41 Dose: 100 mls/hr Documented by: Ceftriaxone Sodium 2 gm/ (Dextrose) 50 mls @ 100 mls/hr IV Q24H [facility]; Protocol Last Infusion: 08/13/20 09:55 Dose: Infused Documented by: Sodium Chloride (Sodium Chloride 0.9%) 1,000 mls @ 0 mls/hr IV BOLUS [facility] Last Infusion: 08/13/20 09:33 Dose: Infused Documented by: Metoclopramide HCl (Reglan) 5 - 10 mg IV Q6HP PRN PRN Reason: Nausea And Vomiting Last Admin: 08/13/20 17:52 Dose: 10 mg Documented by: Pantoprazole Sodium (Protonix) 40 mg IV BIDAC [facility] Last Admin: 08/13/20 17:52 Dose: 40 mg Documented by: Promethazine HCl (Phenergan) 12.5 mg IV Q4-6HP PRN PRN Reason: Nausea And Vomiting Last Admin: 08/13/20 19:00 Dose: 12.5 mg Documented by: ABG Interpretation ABG results: 08/11/20 08/11/20 08/12/20 15:26 23:25 04:27 ABG Methemoglobin 0.2 L 0.3 L 0.3 L VBG pH 7.52 H 7.41 7.48 H VBG pCO2 20.6 L 39.1 L 34.4 L VBG pO2 187.0 H 86.1 H 111.1 H VBG HCO3 17.8 L 24.5 25.2 VBG Total CO2 18.4 L 25.7 26.2 VBG O2 Saturation 96.6 H 93.4 H 94.9 H VBG Base Excess -2 0 2 A/P Narrative A/P Narrative: * DKA-clinically improving with management per protocol. Will transition to subcutaneous insulin/insulin pump in 24 hours and possible discharge. * SEPSIS with end organ dysfunction including CHUYITA/elevated bilirubin. On antibiotic coverage. Source unclear. Clinically improving. * CHUYITA-clinically improved. Creatinine normalized from 1.7-0.9 * Severe nausea vomiting secondary to underlying gastroparesis/DKA. Persistent now requiring Reglan in addition to Phenergan and Zofran * Hematemesis likely secondary to recurrent emesis and Bren-Ramos tear. Continue PPI/n.p.o./crystalloids/antiemetics and bowel rest * Elevated bilirubin sepsis endorgan dysfunction. Resolved * Prophylaxis SCDs/ambulation * Full code Plan * Continue DKA management on insulin drip and transition to subcutaneous insulin in 24 hours * Antiemetics/PPI/crystalloids * Continue electrolyte replacement as indicated Critical care time spent on management of DKA over 35 minutes in addition to time spent Physical Time Spent With Patient Time: Total time spent is greater than 50% in coordination of care (as documented) at patient's floor/unit and/or counseling patient: QUALITY VTE Deep Vein Thrombosis/Pulmonary Embolism Present on Admission: No
[2020-08-13] MEDS ORDERED: ACETAMINOPHEN 650 MG/65 ML BAG IV PRN (20:17)
[2020-08-14] MEDS: DEXTROSE 5%-1/2NS 1,000 ML IV SCH ×2 (04:51→11:06)
[2020-08-14 06:33] LABS: Basophils # (Auto) 0.02 K/mcL (0.00-0.20); Basophils % (Auto) 0.2 % (0.0-2.0); Eosinophils # (Auto) 0.04 K/mcL (0.00-0.70); Eosinophils % (Auto) 0.5 % (0.0-7.0); Hematocrit 42.3 % (41.0-55.0); Hemoglobin 13.8 g/dL (13.5-16.5); Lymphocytes # (Auto) 1.92 K/mcL (1.50-4.80); Lymphocytes % (Auto) 22.2 % (15.0-49.0); Mean Cell Volume 89.8 fL (80.0-100.0); Mean Corpuscular HGB Conc 32.6 g/dL (31.0-36.0); Mean Platelet Volume 9.6 fL (7.4-10.4); Monocytes # (Auto) 0.82 K/mcL (0.10-0.90); Monocytes % (Auto) 9.5 % (1.0-12.0); Neutrophils % (Auto) 67.6 % (38.0-78.0); Platelet Count 199 K/mcL (140-440); RBC 4.71 M/mcL (4.50-5.90); Red Cell Distribution Width 11.6 % (11.5-14.5); WBC 8.7 K/mcL (4.5-11.0)
[2020-08-14] MEDS: PANTOPRAZOLE 40 MG VIAL IV SCH (06:44)
[2020-08-14] MEDS: METOCLOPRAMIDE 10 MG/2 ML VIAL IV PRN (06:45)
[2020-08-14 07:10] LABS: ALT/SGPT 17 U/L (<40); AST/SGOT 18 U/L (<40); Albumin 3.5 gm/dL (3.2-5.2); Albumin/Globulin Ratio 1.3 (1.0-2.3); Alkaline Phosphatase 81 U/L (39-117); Bilirubin,Direct < 0.2 mg/dL (<0.3); Bilirubin,Total 0.9 mg/dL (0.1-1.0); Blood Urea Nitrogen 9 mg/dL (6-20); Calcium 8.7 mg/dL (8.6-10.4); Carbon Dioxide 25 mmol/L (22-30); Chloride 98 mmol/L (96-108); Globulin 2.6 gm/dL (2.2-3.7); Glomerular Filtration Rate 111; Glucose 203 mg/dL (70-105); Lactate Dehydrogenase 190 U/L (135-225); Phosphorous 2.5 mg/dL (2.5-4.5); Triglycerides 129 mg/dL (<150); Uric Acid 3.2 mg/dL (2.5-8.0)
[2020-08-14] MEDS: 0.9 % SODIUM CHLORIDE 1,000 ML IV SCH (08:52)
[2020-08-14] MEDS: cefTRIAXone 2 GM in DEXTROSE 5% IN WATER 50 ML IV SCH (08:52)
--- NOTE | 2020-08-14 13:16 | Discharge Summary ---
Discharge Provider Provider Patient information: Note initiated : 08/14/20 at 1:13 pm Service Date, if different from initiated Date: [] Patient: Ion Ames 35 y/o M admitted on 08/11/20 for nausea, vomiting. Discharge diagnosis * DKA-clinically resolved and management per protocol. Transition to subcutaneous insulin pump. Follow-up with primary care physician in 7 to 10 days. * SEPSIS with end organ dysfunction . Clinically resolved. DC antibiotics * CHUYITA-clinically improved. Creatinine normalized from 1.7-0.9 * Severe nausea vomiting secondary to underlying gastroparesis/DKA. Clinically improved. Advised to avoid cannabis use * Hematemesis likely secondary to recurrent emesis and Bren-Ramos tear. Resolved with PPI/bowel rest * Elevated bilirubin-resolved Brief hospital course History of present illness: Mr. Ames is a 35 year old M who recently moved from [place] a week ago with a history of IDDM managed on insulin pump. Patient has been in his baseline state of health until 2 days prior to presentation started noticing malaise/nausea along with diarrhea. Symptoms progressed to the point patient became extremely dehydrated unable to take anything by mouth and unable to function. He endorses to recurrent emesis followed by bloodstained emesis along with significant epigastric pain 6 out of 10 to 8 out of 10 made worse with attempted vomiting. He felt that his insulin pump has malfunctioned. He presents to the ER with above symptoms. Initial work-up was consistent with severe DKA with elevated anion gap/ketones/blood sugars over 400, CHUYITA with creatinine 1.7 and white count over 23,000. CT scan abdomen unremarkable for acute process. Patient was started on insulin drip/crystalloids and subsequently hospitalist service was consulted At the time of my evaluation patient is very anxious and distressed. He is unable to have a conversation due to severe discomfort from epigastric pain. Endorses to prior hospitalization for DKA at [place]. He denies recent Covid exposure or fever or chills. Denies shortness of breath. Further denies myalgia, joint swelling, rash, headache, photophobia. 08/12-patient on DKA protocol. White count down to 21.8. On antibiotic coverage. Continue insulin drip/crystalloids/management protocol. Venous pH improved to 7.41, bicarb 26, anion gap down to 15 with improved creatinine down to 1 from 1.7. Blood sugars at goal. On insulin drip. Persistent nausea and recurrent emesis. Continue PPI/bowel rest/antiemetics. Patient's would bring the missing insulin pump part that caused malfunction. Attempt transition to subcu insulin in 24 hours once patient able to take orally. 08/13-patient clinically improved. Anion gap normalized. Blood sugars improved. Currently on insulin drip at 2 units/h basal rate. will bring insulin pump in a.m. Persistent nausea requiring antiemetics. Add Reglan/Benadryl. No fever chills, stable hemodynamics. 08/14 doing well. No overnight events. Transition to subcu insulin/CC diet. P atient discharging home with advised to continue insulin pump/follow-up with PCP for continued outpatient diabetes management. Date of admission: 08/11/20 22:20 Discharge date: 08/14/20 Primary care physician: PCP No Consults: 08/11/20 Consult to Physician [CONS] Stat Comment: Consulting Provider: Vickey Peterson Reason For Exam: Physician to Consult Discharge Meds Discharge Medications Home Medications No Known Home Meds 08/12/20 [History Confirmed 08/12/20 Last Taken Unknown] COURSE Hospital Course Hospital course: Discharge diagnosis: DKA Time Spent with Patient Time attestation: Total time spent providing and/or coordinating discharge services: EXAM Constitutional Vitals: Temp Pulse Resp BP Pulse Ox 99.3 F H 87 22 130/80 100 08/14/20 08:01 08/14/20 12:05 08/14/20 12:05 08/14/20 08:01 08/14/20 12:05 Discharge Data Data Completed and Pending Labs on day of discharge: Labs from last 24 hours 08/14/20 08/14/20 05:00 05:00 WBC 8.7 RBC 4.71 Hgb 13.8 Hct 42.3 MCV 89.8 MCH 29.3 MCHC 32.6 RDW 11.6 Plt Count 199 MPV 9.6 Neut % (Auto) 67.6 Lymph % (Auto) 22.2 [place] % (Auto) 9.5 Eos % (Auto) 0.5 Baso % (Auto) 0.2 Lymph # (Auto) 1.92 [place] # (Auto) 0.82 Eos # (Auto) 0.04 Baso # (Auto) 0.02 Absolute Neutrophils 5.85 Sodium 136 Potassium 3.6 Chloride 98 Carbon Dioxide 25 Anion Gap 13.0 BUN 9 Creatinine 0.9 GFR Calculation 111 Glucose 203 H Uric Acid 3.2 Calcium 8.7 Phosphorus 2.5 Magnesium 2.0 Total Bilirubin 0.9 Direct Bilirubin < 0.2 GGT 21 AST 18 ALT 17 Alkaline Phosphatase 81 Lactate Dehydrogenase 190 Total Protein 6.1 Albumin 3.5 Globulin 2.6 Albumin/Globulin Ratio 1.3 Triglycerides 129 Discharge Plan Patient/Caregiver Discharge Instructions Activity: increase activity as tolerated Diet: Consistent Carbohydrate Instructions: Diabetic Ketoacidosis (GEN), Acute Nausea and Vomiting (GEN) Activity Restrictions/Additional Instructions: Return to ER if nausea vomiting/symptoms of elevated blood sugar/pump malfunction noted 7 to 10 days Prescriptions: No Action No Known Home Meds RF: 0 Follow Up Plan Follow up with: Ktaya Dumont MD [Physician] - 08/19/20 2:00 pm (This appointment is at the [facility]) Patient Disposition: Home, Self-Care Prognosis: Fair Rehab Potential: Fair I certify that the patient requires SNF services: No Overall status at discharge: patient is back to baseline Discharge Orders: Discharge Order (Routine); Ordered 08/14/20 Ordered By: Vickey MCCARTY VTE Deep Vein Thrombosis/Pulmonary Embolism Present on Admission: No
== END 2020-08-14 13:45 | disposition home or self-care (01) | DRG 637 ==
LOC: ED 14:50 → ICU 22:20
PROVIDERS: ADMIT Internal Medicine; ATTEND Internal Medicine